=== PATIENT | male | born 1960 | race Caucasian/White ===

== ENCOUNTER 2020-10-04 15:39 | Outpatient (REF) | payer BC, SELFPAY ==
[2020-10-07 17:27] LABS: Lyme Abs Screen <0.90 index
[2020-10-08 12:43] LABS: A. Phagocytophilum Ab IgG <1:64 (<1:64); A. Phagocytophilum Ab IgM <1:20 (<1:20); E. Chaffeensis Ab IgG <1:64 (<1:64); E. Chaffeensis Ab IgM <1:20 (<1:20)
[2020-10-09 10:52] LABS: Babesia IgG <1:64 titer (<1:64); Babesia IgM <1:20 titer (<1:20)
== END 2020-10-04 15:40 | disposition home or self-care (01) ==
LOC: HO.MANLDS 15:39
PROVIDERS: PCP Internal Medicine; Visit Provider Physician Assistant
DX: T14.8XXA Other injury of unspecified body region, initial encounter (principal); W57.XXXA Bitten or stung by nonvenomous insect and other nonvenomous arthropods, initial encounter; Y93.9 Activity, unspecified; Y92.9 Unspecified place or not applicable; Y99.9 Unspecified external cause status
CPT/HCPCS: 36415; 86617; 86618; 86666; 86753

== ENCOUNTER 2021-06-04 10:07 | Outpatient (REF) | payer BC, SELFPAY ==
[2021-06-04 11:24] LABS: Estimated Average Glucose 174 mg/dL; Hemoglobin A1c % 7.7 %
[2021-06-04 11:34] LABS: Alanine Aminotransferase 35 U/L (0-40); Albumin Level 4.1 g/dL (3.5-5.0); Alkaline Phosphatase 66 U/L (39-117); Anion Gap 12 (12-20); Aspartate Amino Transferase 21 U/L (5-37); Bilirubin Total 0.5 mg/dL (0.0-1.0); Blood Urea Nitrogen 13 mg/dL (9-16); Calcium 9.9 mg/dL (8.4-10.2); Carbon Dioxide 29 mmol/L (22-29); Chloride 103 mmol/L (96-108); Estimated Glomerular Filt Rate > 60; Glucose Fasting 238 mg/dL (60-99); Potassium 4.2 mmol/L (3.3-5.1); Sodium 140 mmol/L (135-145); Total Protein 6.8 g/dL (6.5-8.0)
[2021-06-04 11:56] LABS: Free T4 (Free Thyroxine) 0.92 ng/dL (0.71-1.85); Thyroid Stimulating Hormone 1.92 uIU/mL (0.32-4.0)
== END 2021-06-04 10:08 | disposition home or self-care (01) ==
LOC: HO.MANLDS 10:07
PROVIDERS: PCP Internal Medicine; Visit Provider Internal Medicine
DX: R73.01 Impaired fasting glucose (principal); E03.9 Hypothyroidism, unspecified
CPT/HCPCS: 36415; 80053; 83036; 84439; 84443

== ENCOUNTER 2021-10-07 15:16 | Outpatient (REF) | payer BC, SELFPAY ==
[2021-10-07 18:10] LABS: Estimated Average Glucose 148 mg/dL; Hemoglobin A1c % 6.8 %
[2021-10-07 18:21] LABS: Alanine Aminotransferase 22 U/L (0-40); Albumin Level 4.1 g/dL (3.5-5.0); Alkaline Phosphatase 68 U/L (39-117); Anion Gap 12 (12-20); Aspartate Amino Transferase 16 U/L (5-37); Bilirubin Total 0.5 mg/dL (0.0-1.0); Blood Urea Nitrogen 18 mg/dL (9-16); Calcium 9.7 mg/dL (8.4-10.2); Carbon Dioxide 27 mmol/L (22-29); Chloride 104 mmol/L (96-108); Cholesterol 268 mg/dL; Estimated Glomerular Filt Rate > 60; Glucose Random 136 mg/dL (60-115); HDL Cholesterol 47 mg/dL; LDL Cholesterol Calculated 176 mg/dl; Potassium 4.1 mmol/L (3.3-5.1); Sodium 139 mmol/L (135-145); Total Protein 6.7 g/dL (6.5-8.0); Triglycerides 229 mg/dL
[2021-10-07 18:43] LABS: Free T4 (Free Thyroxine) 0.89 ng/dL (0.71-1.85); Thyroid Stimulating Hormone 1.26 uIU/mL (0.32-4.0)
== END 2021-10-07 15:17 | disposition home or self-care (01) ==
LOC: HO.MANLDS 15:16
PROVIDERS: Visit Provider Internal Medicine
DX: E11.9 Type 2 diabetes mellitus without complications (principal); E03.9 Hypothyroidism, unspecified
CPT/HCPCS: 36415; 80053; 80061; 83036; 84439; 84443

== ENCOUNTER 2022-07-20 10:42 | Outpatient (REF) | payer BC, SELFPAY ==
[2022-07-20 14:35] LABS: Estimated Average Glucose 160 mg/dL; Hemoglobin A1c % 7.2 %
[2022-07-20 14:49] LABS: Alanine Aminotransferase 23 U/L (0-40); Albumin Level 4.1 g/dL (3.5-5.0); Alkaline Phosphatase 65 U/L (39-117); Anion Gap 16 (12-20); Aspartate Amino Transferase 16 U/L (5-37); Bilirubin Total 0.7 mg/dL (0.0-1.0); Blood Urea Nitrogen 16 mg/dL (9-16); Calcium 9.8 mg/dL (8.4-10.2); Carbon Dioxide 24 mmol/L (22-29); Chloride 104 mmol/L (96-108); Estimated Glomerular Filt Rate > 60; Glucose Random 117 mg/dL (60-115); Potassium 4.2 mmol/L (3.3-5.1); Sodium 140 mmol/L (135-145); Total Protein 6.6 g/dL (6.5-8.0)
[2022-07-20 15:09] LABS: Thyroid Stimulating Hormone 1.64 uIU/mL (0.32-4.0)
[2022-07-22 05:24] LABS: ~HepC Num1 0.19 S/CO (0.00-0.79); ~Hepatitis C Antibody Nonreactive (Nonreactive)
== END 2022-07-20 10:43 | disposition home or self-care (01) ==
LOC: HO.MANLDS 10:42
PROVIDERS: Visit Provider Internal Medicine
DX: Z11.59 Encounter for screening for other viral diseases (principal); E11.9 Type 2 diabetes mellitus without complications; E03.9 Hypothyroidism, unspecified
CPT/HCPCS: 36415; 80053; 83036; 84443; 86803

== ENCOUNTER 2022-07-29 10:32 | Outpatient (REF) | payer BC, SELFPAY ==
[2022-07-29 13:54] LABS: Prostate Specific Antigen 0.55 ng/mL (<0.05-4.0)
== END 2022-07-29 10:33 | disposition home or self-care (01) ==
LOC: HO.MANLDS 10:32
PROVIDERS: Visit Provider Physician Assistant
DX: Z12.5 Encounter for screening for malignant neoplasm of prostate (principal); N40.0 Benign prostatic hyperplasia without lower urinary tract symptoms
CPT/HCPCS: 36415; 84153

== ENCOUNTER 2022-10-12 14:06 | Outpatient (REF) | payer BC, SELFPAY ==
[2022-10-12 18:14] LABS: Estimated Average Glucose 151 mg/dL; Hemoglobin A1c % 6.9 %
[2022-10-12 18:20] LABS: Alanine Aminotransferase 31 U/L (0-40); Albumin Level 4.2 g/dL (3.5-5.0); Alkaline Phosphatase 69 U/L (39-117); Anion Gap 14 (12-20); Aspartate Amino Transferase 21 U/L (5-37); Bilirubin Total 0.6 mg/dL (0.0-1.0); Blood Urea Nitrogen 15 mg/dL (9-16); Calcium 9.7 mg/dL (8.4-10.2); Carbon Dioxide 26 mmol/L (22-29); Chloride 105 mmol/L (96-108); Estimated Glomerular Filt Rate > 60; Glucose Random 179 mg/dL (60-115); Potassium 4.5 mmol/L (3.3-5.1); Sodium 140 mmol/L (135-145); Total Protein 6.8 g/dL (6.5-8.0)
[2022-10-12 18:37] LABS: Thyroid Stimulating Hormone 1.71 uIU/mL (0.32-4.0)
== END 2022-10-12 14:07 | disposition home or self-care (01) ==
LOC: HO.MANLDS 14:06
PROVIDERS: Visit Provider Internal Medicine
DX: Z11.59 Encounter for screening for other viral diseases (principal); E11.9 Type 2 diabetes mellitus without complications; E03.9 Hypothyroidism, unspecified
CPT/HCPCS: 36415; 80053; 83036; 84443

== ENCOUNTER 2023-06-09 07:23 | Outpatient (REF) | payer BC, SELFPAY ==
[2023-06-09 13:50] LABS: Estimated Average Glucose 169 mg/dL; Hemoglobin A1c % 7.5 % (<6.0)
[2023-06-09 14:08] LABS: Alanine Aminotransferase 36 U/L (0-40); Albumin Level 4.4 g/dL (3.5-5.0); Alkaline Phosphatase 62 U/L (39-117); Anion Gap 13 (12-20); Aspartate Amino Transferase 23 U/L (5-37); Bilirubin Total 0.6 mg/dL (0.0-1.0); Blood Urea Nitrogen 17 mg/dL (9-16); Calcium 9.8 mg/dL (8.4-10.2); Carbon Dioxide 29 mmol/L (22-29); Chloride 103 mmol/L (96-108); Cholesterol 150 mg/dL (<200); Estimated Glomerular Filt Rate > 60; Glucose Random 161 mg/dL (60-115); HDL Cholesterol 54 mg/dL (>40); LDL Cholesterol Calculated 76 mg/dL (<100); Potassium 3.8 mmol/L (3.3-5.1); Sodium 141 mmol/L (135-145); Total Protein 7.4 g/dL (6.5-8.0); Triglycerides 101 mg/dL (<150)
[2023-06-09 14:17] LABS: Free T4 (Free Thyroxine) 0.84 ng/dL (0.71-1.85); Thyroid Stimulating Hormone 3.43 uIU/mL (0.32-4.0)
[2023-06-09 14:27] LABS: Creatinine Urine 158.93 mg/dL
== END 2023-06-09 07:24 | disposition home or self-care (01) ==
LOC: HO.MANLDS 07:23
PROVIDERS: Visit Provider Internal Medicine
DX: E11.9 Type 2 diabetes mellitus without complications (principal); E03.8 Other specified hypothyroidism
CPT/HCPCS: 36415; 80053; 80061; 82043; 82570; 83036; 84439; 84443

== ENCOUNTER 2024-09-27 08:48 | Outpatient (REF) | payer BC, SELFPAY ==
--- OUTSIDE RECORDS SUMMARY | 2024-09-27 09:09 | XMS_ITS | Data Portability ---
Author Organization [facility], [facility], [facility] Address [address] [place] [address] Assessment No assessment recorded. Plan of Treatment Reminders Order Date Submit Date Provider Last Modified By Organization Details Last Modified Time Details Appointments None record ed. Lab None record ed. Referral None record ed. Procedures None record ed. Surgeries None record ed. Imaging None record ed. Medication Orders None record ed. Patient TargetsNo targets recorded. Patient InstructionsNo instructions recorded. Reason for Referral None Reported. Results Created Date Observation Date Name Description Value Unit Range Abnormal Flag Note LastModifiedBy Organization Detail LastModifiedTime Result Notes None recorded. Procedures Surgical History Date Name Laterality Status Provider Name and Address Organization Details Recorded Time Michelle - EGD completed Alfonso Martinez MD [address] [place] [address], [phone] 09/03/2023 11:20:39 Imaging Results None recorded. Procedure Notes None recorded. Medical Equipment None Reported. Allergies No known drug allergies Medications Name Sig Start Date Stop Date Status Note LastModified by Organization Details LastModified Time valsartan active Not Available Not Letty ilable Not Available aspirin active Not Available Not Avail able Not Available levothyroxine active Not Available Not Available Not Available tamsulosin active Not Available Not Av ailable Not Available omeprazole active Not Available Not Av ailable Not Available metoprolol succinate active Not Available Not Available No t Available metformin active Not Available Not Letty ilable Not Available rosuvastatin active Not Available Not Available Not Available Vitals None Recorded Social History None recorded. Functional Status None recorded. Mental Status None recorded. Family History Nothing Reported. Medical History No medical history recorded. Past Encounters Encounter ID Performer Location Encounter Start Date Encounter Closed Date Diagnosis/Indication Diagnosis SNOMED-CT Code Diagnosis ICD10 Code Diagnosis Note [id number] Alfonso Martinez MD [facility], [address] [address] 12/27/2014 10:01:45 12/27/2014 13:41:42 [id number] Alfonso Martinez MD [facility], [address] [address] 06/06/2018 10:10:43 06/06/2018 14:39:45 [id number] Alfonso Martinez MD [facility], [address] [address] 07/15/2020 10:17:14 07/15/2020 13:34:25 [id number] Alfonso Martinez MD [facility] , [address] [address] 09/03/2023 09:01:21 09/03/2023 13:13:07 Health Concerns Section Related Observation LastModified by Organization Detai ls LastModified Time None Recorded Concern Status LastModified by Organization Details LastModified Time None Recorded Advance Directives Directive None Recorded Payers Encounter Date Sequence Insurance Name Policy Number Policy Lisa Covered Member ID Lisa Member ID Guarantor Name 09/03/2023 1 [facility] ([facility]) [id number] Charley Medrano [id number] Chris Hand
[2024-09-27 13:12] LABS: MANUAL DIFF FLAG NO
[2024-09-27 13:29] LABS: Basophils Absolute Auto 0.1 X10*3/uL (0.0-0.2); Basophils Percent Auto 1.3 % (0-2); Eosinophils Absolute Auto 0.3 X10*3/uL (0.0-0.4); Eosinophils Percent Auto 4.2 % (0-4); Hematocrit 43.8 % (42.0-52.0); Hemoglobin 15.1 g/dl (14.0-18.0); Imm Gran Abs Auto 0.02 X10*3/uL (0.00-0.03); Imm Gran Pct Auto 0.3 % (0.0-0.4); Lymphocytes Absolute Auto 2.3 X10*3/uL (1.2-4.9); Lymphocytes Percent Auto 37.2 % (20-40); Mean Corpuscular HGB Conc 34.5 g/dl (31.0-36.0); Mean Corpuscular Hemoglobin 30.9 pg (27.0-33.0); Mean Corpuscular Volume 89.6 fL (80.0-98.0); Mean Platelet Volume 10.7 fL (9.4-12.4); Monocytes Absolute Auto 0.7 X10*3/uL (0.1-1.2); Monocytes Percent Auto 10.5 % (2-11); Neutrophils Absolute Auto 2.9 x10*3/uL (2.0-8.3); Neutrophils Percent Auto 46.5 % (45-73); Platelet Count 243 X10*3/uL (160-400); Red Blood Count 4.89 X10*6/uL (4.60-5.80); Red Cell Distribution Width 12.4 % (11.0-16.0); White Blood Count 6.2 X10*3/uL (4.8-10.8)
[2024-09-27 13:36] LABS: Estimated Average Glucose 189 mg/dL; Hemoglobin A1c % 8.2 % (<6.0)
[2024-09-27 13:40] LABS: Alanine Aminotransferase 37 U/L (0-40); Albumin Level 4.4 g/dL (3.5-5.0); Alkaline Phosphatase 58 U/L (39-117); Anion Gap 10 (12-20); Aspartate Amino Transferase 32 U/L (5-37); Bilirubin Total 0.7 mg/dL (0.0-1.0); Blood Urea Nitrogen 15 mg/dL (9-16); Calcium 9.3 mg/dL (8.4-10.2); Carbon Dioxide 27 mmol/L (22-29); Chloride 105 mmol/L (96-108); Cholesterol 149 mg/dL (<200); Estimated Glomerular Filt Rate > 60; Glucose Random 151 mg/dL (60-115); HDL Cholesterol 46 mg/dL (>40); LDL Cholesterol Calculated 84 mg/dL (<100); Potassium 3.9 mmol/L (3.3-5.1); Sodium 138 mmol/L (135-145); Total Protein 6.8 g/dL (6.5-8.0); Triglycerides 97 mg/dL (<150)
[2024-09-27 14:05] LABS: Free T4 (Free Thyroxine) 0.94 ng/dL (0.71-1.85); Thyroid Stimulating Hormone 3.17 uIU/mL (0.32-4.0)
[2024-09-27 14:52] LABS: Folate 12.4 ng/mL (> or = 4.0); Vitamin B12 664 pg/mL (200-900)
== END 2024-09-27 08:49 | disposition home or self-care (01) ==
LOC: HO.MANLDS 08:48
PROVIDERS: Visit Provider Physician Assistant
DX: E11.9 Type 2 diabetes mellitus without complications (principal); E78.2 Mixed hyperlipidemia; E03.8 Other specified hypothyroidism; G62.9 Polyneuropathy, unspecified
CPT/HCPCS: 36415; 80053; 80061; 82607; 82746; 83036; 84439; 84443; 85025

== ENCOUNTER 2025-01-30 11:29 | Outpatient (REF) | payer BC, SELFPAY ==
--- OUTSIDE RECORDS SUMMARY | 2021-06-27 12:30 | XMS_ITS | Encounter Summary ---
Author Organization [facility] Address [address] [place] [address] [place] [address] Phone Care Team Providers Care Building Materials Sales Attendant Name Role Phone Shahid Watkins MD Unavailable Duarte Erickson DO Primary Care Provider [phone] Encounter Details Date Type Department Care Team (Late st Contact Info) Description 06/27/2021 11:30 AM EST Hospital Encounter [facility] [address] [place] [address] Sia Conn FNP [address] [place] [address] [email or web address] Social History Tobacco Use Types Packs/Day Years [...] 2:26 PM EDT Sharif Francis, BIRDIE * [place] Suicide Severity Rating Scale (Screener/Recent Self-Report) Question Answer Date of Assessment Author 1. Wish to be (Past 1 Month) No 024 2:26 PM EDT Sharif Francis, BIRDIE 2. Non-Specific Active Suici sy Thoughts (Past 1 Month) No 10/23/2023 2:26 PM EDT Sharif Francis RN 6. Suicidal Behavior (Lifetime) No 4 2:26 PM EDT Sharif Francis, RN documented as of this encounter Plan of Treatment Upcoming Encounters Date Type Department Care Team (Late st Contact Info) Description 07/02/2025 10:20 AM EST Office Visit [facility] [address] [place] [address] 3rd Floor, [address] [place] [address] Earl Deshpande MD [address] [place] [address], [address] [place] [phone] [email or web address] documented as of this encounter Procedures Procedure [...] originally createdby Pedro Luis Edouard. Sia Conn TOLL REPAIRER CENTRAL OFFICE IMG XR CHEST Final Resul t documented in this encounter Visit Diagnoses Not on filedocumented in this encounter Care Teams Building Materials Sales Attendant Relationship Specialty Start Date End Date Duarte Erickson DO [address] [place] [address] [email or web address] PCP - General Internal Medicine 12/10/20 Shahid Watkins MD [address] [place] [address] [email or web address] Gastroenterology 06/04/15 documented as of this encounter Additional Source Comments The information contained in this document represents components of the legal health record. It is not the complete legal health record.[facility]
--- OUTSIDE RECORDS SUMMARY | 2025-01-30 12:55 | XMS_ITS | Clinical Summary ---
Author Organization [facility] Address [address] [place] [address] Care Team Providers Care Shirt Bander Name Role Phone Duarte Erickson Primary Care Provider Allergies No known active allergies Medications levothyroxine (SYNTHROID, LEVOTHROID) 50 mcg tablet TAKE 1 TABLET BY MOUTH EVERY DAY 11/13/2020 Active aspirin 325 mg EC tablet Take 1 tablet (325 mg total) by mouth once a day for 14 days. 14 tablet 03/05/2021 Active tamsulosin (FLOMAX) 0.4 mg capsule 05/19/2022 Active omeprazole (PriLOSEC) 20 mg capsule 04/30/2022 Active Active Problems Problem Noted Date Diagnosed Date Right knee pain 03/10/2022 Complex tear of medial menis cus of right knee as current injury 01/14/2021 Family History Medical History Relation Name Comments COPD Father Heart disease Father Relation Name Status Comments Father Mother Social History Tobacco Use Types Packs/Day Years Used Date Smoking Tobacco: Former Cigarettes Smokeless Tobacco: Never Comments:quit 01/2021 Alcohol Use Standard Drinks/Week Comments Yes 0 (1 standard drink = 0.6 oz pur e alcohol) wine daily Sex and Gender Information Value Date Recorded Sex Assigned at Male 12/20/2020 5:37 PM EDT Legal Sex Male 2:05 PM EDT Gender Identity Male 12/20/2020 5:37 PM EDT Sexual Orientation Straight 12/20/2020 5: 37 PM EDT Plan of Treatment Health Maintenance Due Date Last Done Comments Cologuard 1961 Colon Cancer Screening 1961 Colonoscopy 1961 FOBT / Fit Test 1961 HIV Screening 1961 Hepatitis C Screening 1961 Sigmoidoscopy 1961 DTaP,Tdap,and Td Vaccines (1 - Tdap) 1983 CT Lung Cancer Screening (Baseline) 2011 Pneumococcal Vaccine: 50+ Years (1 of 1 - PCV) 2011 Zoster Vaccines (1 of 2) 2011 Alcohol/Substance Use Screening 05/03/2024 Depression Screening and Follow-Up 05/03/2024 Social Drivers of Health Annual Screening 05/03/2024 COVID-19 Vaccine ( season) 2025 04/21/2022, 10/21/2021, 03/20/2021, Additional history exists Influenza Vaccine (#1) 2025 , 02/06/2019, 03/15/2018 RSV Vaccine (60+ years old and patients) (1 - 1-dose 75+ series) 2036 Hepatitis B Vaccines Aged Out No long er eligible based on patient's age to complete this topic Insurance [facility] HMO/POS Care Teams Shirt Bander Relationship Specialty Start Date End Date Duarte Erickson [address] [place] [phone] PCP - General Internal Medicine 12/20/20
--- OUTSIDE RECORDS SUMMARY | 2025-01-30 12:55 | XMS_ITS | Encounter Summary ---
Author Organization [facility] Address [address] [place] [address] [place] [address] Phone Care Team Providers Care Medical Lab Scientist Name Role Phone Shahid Watkins MD Unavailable Bigda, Duarte A DO Unavailable Bigda, Duarte A DO Primary Care Provider [phone] Bigda, Duarte A DO Primary Care Provider [phone] Encounter Details Date Type Department Care Team (Late st Contact Info) Description 06/07/2020 Ancillary Orders Virtual Department [address] [place] [address] Mayra Conrad PA [address] [place] [address] [place] [address] Chest pain, unspecified type Social History Tobacco Use Types Packs/Day Years Used Date Smoking Tobacco: Former Smokeless Tobacco: Never Alcohol Use Standard Drinks/Week Comments Yes 0 (1 standard drink = 0.6 oz pur e alcohol) Sex and Gender Information Value Date Recorded Sex Assigned at Male 08/10/2017 12:27 AM EDT Legal Sex Male 7:43 PM EST Gender Identity Male 08/10/2017 12:27 AM EDT Sexual Orientation Straight 08/10/2017 12 :27 AM EDT documented as of this encounter Plan of Treatment Upcoming Encounters Date Type Department Care Team (Late st Contact Info) Description 07/02/2025 10:20 AM EST Office Visit [facility] [address] [place] [address] 3rd Floor, [address] [place] [address] Earl Deshpande MD 22 [facility], [address] [place] [address] [email or web address] documented as of this encounter Results * NC Stress Result for Nuclear Stress Test (06/07/2020 11:06 AM EST) Max BP Systolic 154 mmHg [facility] Max BP Diastolic 92 mmHg [facility] Max HR 146 BPM [facility] Resting HR 87 BPM [facility] Resting BP Systolic 142 mmHg [facility] Resting BP Diastolic 92 mmHg [facility] Peak METS 1.0 METS [facility] Peak HR 126 BPM [facility] Anatomical Region Laterality Modality Heart Other 06/07/2020 9:56 AM EST 06/07/2020 11:05 AM EST Narrative 06/07/2020 6:59 PM EST Response to Stress The patient exercised for minutes seconds, achieving 1.0 METS at peak exercise. Baseline blood pressure was 142/92 mmHg, and baseline heart rate was 87 bpm. The patient achieved a peak heart rate of 126 bpm, which is% of their maximum predicted heart rate. Report: Pt exercised for 8:27 min on a LEIDY protocol achieving 10.10 METS. Test terminated due to fatigue. Baseline resting HR was 66 bpm. Max heart rate achieved was 146 bpm (90% MPHR). 1. EKG - Baseline EKG showed sinus rhythm with non-specific ST-T wave abnormalities. During exercise, There were exaggerations of his baseline abnormalities, no EKG changes that met strict criteria for ischemia. 2. SYMPTOMS - No chest pain. 3. EXERCISE PHYSIOLOGY - Normal BP response to exercise. Average functional capacity for age. 4. ARRHYTHMIAS - Occasional PVC's.. Conclusion - No EKG changes that met strict criteria for ischemia. Nuclear images pending and will be reported separately. Tsering Armenta,BETSY, BRIDGE PAINTER HELPER-BC with Dr. Aaron. us Mayra HERNANDEZ CV NM CARDIAC Final Resul t documented in this encounter Visit Diagnoses Diagnosis Chest pain, unspecified type Chest pain, unspecified type documented in this encounter Care Teams Medical Lab Scientist Relationship Specialty Start Date End Date Duarte EricksonDO [address] [place] [address] [email or web address] PCP - General Internal Medicine 12/01/19 12/09/20 Duarte Erickson DO [address] [place] [address] [email or web address] PCP - General Internal Medicine 12/10/20 Shahid Watkins MD [address] [place] [address] [email or web address] Gastroenterology 06/04/15 Duarte Erickson DO [address] [place] [address] [email or web address] Insurance Assigned Provider 08/07/23 documented as of this encounter Additional Source Comments The information contained in this document represents components of the legal health record. It is not the complete legal health record.[facility]
--- OUTSIDE RECORDS SUMMARY | 2025-01-30 12:55 | XMS_ITS | Encounter Summary ---
Author Organization [facility] Address [address] [place] [address] Phone Care Team Providers Care Ocean Lifeguard Name Role Phone Shahid Watkins MD Unavailable Duarte Erickosn DO Unavailable Duarte Erickson DO Primary Care Provider [phone] Encounter Details Date Type Department Care Team (Late st Contact Info) Description 12/16/2020 Procedure Pass [facility], [address] [place] [address] Social History Tobacco Use Types Packs/Day Years [...] AM EDT documented as of this encounter Last Filed Vital Signs Vital Sign Reading Time Taken Comments Blood Pressure - - Pulse - - Temperature - - Respiratory Rate - - Oxygen Saturation - - Inhaled Oxygen Concentration - - Weight 77.1 kg (170 lb) 12/17/2020 12:52 PM EDT Height 167.6 cm (5' 6 ) 12/17/2020 12:52 PM EDT Body Mass Index 27.44 12/17/2020 12:52 PM EDT documented in this encounter Plan of Treatment Upcoming Encounters Date Type Department Care Team (Late st Contact Info) Description 07/02/2025 10:20 AM EST Office Visit [facility] [address] [facility] 3rd Floor, [address] [place] [address] Earl Deshpande MD 22 [facility], [address] [place] [address] [email or web address] documented as of this encounter Visit Diagnoses Not on filedocumented in this encounter Care Teams Ocean Lifeguard Relationship Specialty Start Date End Date Duarte Erickson DO [address] [place] [address] [email or web address] PCP - General Internal Medicine 12/10/20 Shahid Watkins MD [address] [place] [address] [email or web address] Gastroenterology 06/04/15 Duarte Erickson DO [address] [place] [address] [email or web address] Insurance Assigned Provider 08/07/23 documented as of this encounter Additional Source Comments The information contained in this document represents components of the legal health record. It is not the complete legal health record.[facility]
--- OUTSIDE RECORDS SUMMARY | 2025-01-30 12:55 | XMS_ITS | Encounter Summary ---
Author Organization [facility] Address [address] [place] [address] [place] [address] Phone Care Team Providers Care Horticulture Worker Name Role Phone Shahid Watkins MD Unavailable Duarte Erickson DO Unavailable Duarte Erickson DO Primary Care Provider [phone] Encounter Details Date Type Department Care Team (Latest Contact Info) Description 07/29/2022 Transcribe Orders Virtual Department [address] [place] [address] Mayra Conrad PA [address] [place] [address] [place] [address] Chronic maxillary sinusitis (Primary Dx) Social History Tobacco Use Types Packs/Day Years [...] Description 07/02/2025 10:20 AM EST Office Visit [facility] [address] [place] [address] 3rd Floor, [address] [place] [address] Earl Deshpande MD [address] [place] [address], [address] [place] [address] [email or web address] documented as of this encounter Results * XR PARANASAL SINUSES 3 OR MORE VIEWS (08/03/2022 9:32 AM EDT) Anatomical Region Laterality Modality Face Computed Radiogr aphy 08/03/2022 3:58 PM EDT Impressions 08/03/2022 4:01 PM EDT No evidence of sinusitis. 8mm oval calcific density overlying the lower calvarium at midline could be related to calcification of the falx or tentorium. Narrative 08/03/2022 4:01 PM EDT XR PARANASAL SINUSES 3 OR MORE VIEWS HISTORY: Sinus pain, sinusitis. COMPARISON: None. FINDINGS: The paranasal sinuses are clear and well-aerated. There is no evidence of an air-fluid level. 8mm oval calcific density overlying the lower calvarium at midline could be related to calcification of the falx or tentorium. Procedure Note Shyam Tapia MD - 08/03/2022 XR PARANASAL SINUSES 3 OR MORE VIEWS HISTORY: Sinus pain, sinusitis. COMPARISON: None. FINDINGS: The paranasal sinuses are clear and well-aerated. There is no evidence ofan air- fluid level. 8mm oval calcific density overlying the lower calvarium at midline couldbe related to calcification of the falx or tentorium. IMPRESSION: No evidence of sinusitis. 8mm oval calcific density overlying the lowercalvarium at midline could be related to calcification of the falx ortentorium. Mayra HERNANDEZ IMG XR HEAD AND SHUNT SERIE S Final Result documented in this encounter Visit Diagnoses Diagnosis Chronic maxillary sinusitis- Primary Chronic maxillary sinusitis documented in this encounter Care Teams Horticulture Worker Relationship Specialty Start Date End Date Duarte Erickson DO [address] [place] [address] [email or web address] PCP - General Internal Medicine 12/10/20 Shahid Watkins MD [address] [place] [address] [email or web address] [email or web address] 06/04/15 Duarte Erickson DO [address] [place] [address] [email or web address] Insurance Assigned Provider 08/07/23 documented as of this encounter Additional Source Comments The information contained in this document represents components of the legal health record. It is not the complete legal health record.[facility]
--- OUTSIDE RECORDS SUMMARY | 2025-01-30 12:55 | XMS_ITS | Encounter Summary ---
Author Organization [facility] Address [address] [place] [address] [place] [address] Phone Care Team Providers Care Pediatric Geneticist Name Role Phone Shahid Watkins MD Unavailable Bigda, Duarte A DO Unavailable Bigda, Duarte A DO Primary Care Provider [phone] Bigda, Duarte A DO Primary Care Provider [phone] Encounter Details Date Type Department Care Team (Late st Contact Info) Description 06/07/2020 Ancillary Orders Virtual Department [address] [place] [address] Mayra Conrad PA [address] [place] [address] [place] [address] Chest pain, unspecified type Social History Tobacco [...] Description 07/02/2025 10:20 AM EST Office Visit [facility] [address] [place] [address] 3rd Floor, [address] [place] [address] Earl Deshpande MD 22 [facility], [address] [address] [email or web address] documented as of this encounter Visit Diagnoses Diagnosis Chest pain, unspecified type documented in this encounter Care Teams Pediatric Geneticist Relationship Specialty Start Date End Date Duarte Erickson DO [address] [place] [address] [email or web address] PCP - General Internal Medicine 12/01/19 12/09/20 Duarte Erickson DO [address] [place] [address] [email or web address] PCP - General Internal Medicine 12/10/20 Shahid Watkins MD [address] [place] [address] [email or web address] Gastroenterology 06/04/15 Duarte Erickson DO [address] [place] [address] [email or web address] Insurance Assigned Provider 08/07/23 documented as of this encounter Additional Source Comments The information contained in this document represents components of the legal health record. It is not the complete legal health record.[facility]
--- OUTSIDE RECORDS SUMMARY | 2025-01-30 12:55 | XMS_ITS | Encounter Summary ---
Author Organization [facility] Address [address] [place] [address] Phone Care Team Providers Care Kinesiologist Name Role Phone Duarte Erickson DO Primary Care Provider [phone] Shahid Watkins MD Unavailable Rodolfo August PA-C Primary Care Provider [phone] Duarte Erickson DO Unavailable Duarte Erickson DO Primary Care Provider [phone] Duarte Erickson DO Primary Care Provider [phone] Encounter Details Date Type Department Care Team (Late st Contact Info) Description 08/13/2017 Transcribe Orders [facility] [address] [place] [address] Duarte Erickson DO 179 [facility] [address] [place] [address] Impaired fasting glucose (Primary Dx); Pure hypercholesterolemi a; Myxedema heart disease Social History Tobacco Use Types Packs/Day Years [...] Description 07/02/2025 10:20 AM EST Office Visit [facility] [address] [facility] 3rd Floor, [address] [place] [address] Earl Deshpande MD 22 [facility], [address] [place] [address] [email or web address] documented as of this encounter Results * PSA (screening) (08/13/2017 7:42 AM EDT) PSA 0.49 0 - 4.00 ng/mL [facility] Blood 08/13/2017 7:42 AM EDT 08/13/2017 8:44 AM EDT us Duarte A Bigda DO LAB BLOOD ORDERABLES Final Resul t Performing Organization Address [facility] Co de Phone Number [address] [address] * TSH (08/13/2017 7:42 AM EDT) TSH 2.70 0.27 - 4.20 uIU/mL [facility] Blood 08/13/2017 7:42 AM EDT 08/13/2017 8:26 AM EDT us Duarte A Big DO LAB BLOOD ORDERABLES Final Resul t Performing Organization Address [facility] Co de Phone Number [address] [address] * (ABNORMAL) Lipid panel (08/13/2017 7:42 AM EDT) HDL 50 mg/dL [facility] Comment: Interpretation: Risk Level Males Decreased >45 mg/dL Average 40-45 mg/dL Increased <40 mg/dL CHOLESTEROL 240 0 - 240 mg/dL [facility] TRIGLYCERIDES 94 30 - 160 mg/dL [facility] LDL 171(H) 50 - 129 mg/dL [facility] Comment: LDL levels in terms of risk for coronary heart disease: <100 mg/dL: Optimal 100-129 mg/dL: Near or above optimal 130-159 mg/dL: Borderline high 160-189 mg/dL: High >190 mg/dL: Very High CARDIAC RISK RATIO 4.8 3.4 - 5.0 [facility] Blood 08/13/2017 7:42 AM EDT 08/13/2017 8:26 AM EDT us Duarte A Georgina DO LAB BLOOD ORDERABLES Final Resul t [facility] [address] [place] [address] * Comprehensive metabolic panel (08/13/2017 7:42 AM EDT) SODIUM 142 133 - 146 mmol/L [facility] POTASSIUM 4.5 3.3 - 5.1 mmol/L [facility] CHLORIDE 100 96 - 108 mmol/L [facility] CO2 28 21 - 35 mmol/L [facility] BUN 14 6 - 19 mg/dL [facility] CREATININE 1.00 0.5 - 1.5 mg/dL [facility] GLUCOSE 94 70 - 99 mg/dL [facility] ALBUMIN 4.4 3.9 - 4.8 g/dL [facility] TOTAL PROTEIN 7.2 6.5 - 8.0 g/dL [facility] CALCIUM 9.8 8.4 - 10.3 mg/dL [facility] ALKALINE PHOSPHATASE 63 39 - 117 U/L [facility] TOTAL BILIRUBIN 0.5 0.0 - 1.2 mg/dL [facility] AST 22 0 - 37 U/L [facility] ALT 27 0 - 40 U/L [facility] GLOBULIN 2.8 1 - 4.8 g/dL [facility] EGFR 84 >59 mL/min/1.7 3m2 [facility] Comment:If patient is black, multiply result by 1.159. The eGFR calculation has changed from the MDRD equation to the CKD-EPI equation as of July 06, 2017. ANION GAP 19 10 - 20 mmol/L [facility] Blood 08/13/2017 7:42 AM EDT 08/13/2017 8:26 AM EDT us Duarte Erickson DO LAB BLOOD ORDERABLES Final Resul t [facility] [address] [place] [address] documented in this encounter Visit Diagnoses Diagnosis Impaired fasting glucose- Primary Pure hypercholesterolemia Myxedema heart disease Unspecified hypothyroidism documented in this encounter Care Teams Kinesiologist Relationship Specialty Start Date End Date Duarte Erickson DO [email or web address] PCP - General Internal Medicine 01/18/14 06/05/18 Scarlet Reynolds PA-C [address] [address] [address] PCP - General Unknown Provider Specialty 06/06/18 11/30/19 Duarte Erickson DO PCP - General Internal Medicine 12/01/19 12/09/20 Duarte Erickson DO PCP - General Internal Medicine 12/10/20 Shahid Watkins MD [address] [place] [address] [email or web address] Gastroenterology 06/04/15 Duarte Erickson DO [address] [place] [address] [email or web address] Insurance Assigned Provider 08/07/23 documented as of this encounter Additional Source Comments The information contained in this document represents components of the legal health record. It is not the complete legal health record.[facility]
--- OUTSIDE RECORDS SUMMARY | 2025-01-30 12:55 | XMS_ITS | Encounter Summary ---
Author Organization [facility] Address [address] [place] [address] Phone Care Team Providers Care Helium Arc Welder Name Role Phone Shahid Watkins MD Unavailable Duarte Erickson DO Unavailable Duarte Erickson DO Primary Care Provider [phone] Encounter Details Date Type Department Care Team (Late st Contact Info) Description 08/21/2022 Procedure Pass [facility], [address] [place] [address] Social History Tobacco Use Types Packs/Day Years [...] Description 07/02/2025 10:20 AM EST Office Visit [facility] [address] [place] [address] 3rd Floor, [address] [place] [address] Earl Deshpande MD 22 [facility], [address] [place] [phone] [email or web address] documented as of this encounter Visit Diagnoses Not on filedocumented in this encounter Care Teams Helium Arc Welder Relationship Specialty Start Date End Date Duarte Erickson DO [address] [place] [address] [email or web address] PCP - General Internal Medicine 12/10/20 Shahid Watkins MD [address] [place] [address] [email or web address] Gastroenterology 06/04/15 Duarte Erickson DO [address] [place] [address] [email or web address] Insurance Assigned Provider 08/07/23 documented as of this encounter Additional Source Comments The information contained in this document represents components of the legal health record. It is not the complete legal health record.[facility]
--- OUTSIDE RECORDS SUMMARY | 2025-01-30 12:55 | XMS_ITS | Encounter Summary ---
Author Organization [facility] Address [address] [facility] [address] [place] [address] Phone Care Team Providers Care Surgical Dental Assistant Name Role Phone Shahid Watkins MD Unavailable Bigda, Duarte A DO Unavailable Bigda, Duarte A DO Primary Care Provider [phone] Bigda, Duarte A DO Primary Care Provider [phone] Encounter Details Date Type Department Care Team (Late st Contact Info) Description 12/01/2019 Procedure Pass [facility], [address] [address] Social History Tobacco Use Types Packs/Day Years [...] Description 07/02/2025 10:20 AM EST Office Visit [facility] [address] [place] [address] 3rd Floor, [address] [place], [place] [phone] Earl Deshpande MD 22 [facility], [address] [place], [place] [phone] [email or web address] documented as of this encounter Visit Diagnoses Not on filedocumented in this encounter Care Teams Surgical Dental Assistant Relationship Specialty Start Date End Date Duarte Erickson DO [address] [place] [address] [email or web address] PCP - General Internal Medicine 12/01/19 12/09/20 Duarte Erickson DO [address] [place] [address] [email or web address] PCP - General Internal Medicine 12/10/20 Shaihd Watkins MD [address] [place] [address] [email or web address] Gastroenterology 06/04/15 Duarte Erickson DO [address] [place] [address] [email or web address] Insurance Assigned Provider 08/07/23 documented as of this encounter Additional Source Comments The information contained in this document represents components of the legal health record. It is not the complete legal health record.[facility]
--- OUTSIDE RECORDS SUMMARY | 2025-01-30 12:55 | XMS_ITS | Encounter Summary ---
Author Organization [facility] Address [address] [facility] [address] [place] [address] Phone Care Team Providers Care Rn Mds Name Role Phone Shahid Watkins MD Unavailable Bigda, Duarte A DO Unavailable Bigda, Duarte A DO Primary Care Provider [phone] Bigda, Duarte A DO Primary Care Provider [phone] Encounter Details Date Type Department Care Team (Late st Contact Info) Description 09/06/2020 Procedure Pass [facility], [address] [id number] Social History Tobacco Use Types Packs/Day Years [...] Description 07/02/2025 10:20 AM EST Office Visit [facility] [address] [place] [address] 3rd Floor, [address] [place], [place] [phone] Earl Deshpande MD 22 [facility], [address] [place], [place] [phone] [email or web address] documented as of this encounter Visit Diagnoses Not on filedocumented in this encounter Care Teams Rn Mds Relationship Specialty Start Date End Date Duarte Erickson DO [address] [place] [address] [email or web address] PCP - General Internal Medicine 12/01/19 12/09/20 Duarte Erickson DO [address] [place] [address] [email or web address] PCP - General Internal Medicine 12/10/20 Shahid Watkins MD [address] [place] [address] [email or web address] Gastroenterology 06/04/15 Duarte Erickson DO [address] [place] [address] [email or web address] Insurance Assigned Provider 08/07/23 documented as of this encounter Additional Source Comments The information contained in this document represents components of the legal health record. It is not the complete legal health record.[facility]
--- OUTSIDE RECORDS SUMMARY | 2025-01-30 12:55 | XMS_ITS | Encounter Summary ---
Author Organization [facility] Address [address] [place] [address] Phone Care Team Providers Care Corsets Salesperson Name Role Phone Shahid Watkins MD Unavailable Bigda, Duarte A DO Unavailable Bigda, Duarte A DO Primary Care Provider [phone] Bigda, Duarte A DO Primary Care Provider [phone] Encounter Details Date Type Department Care Team (Latest Contact Info) Description 07/25/2020 Transcribe Orders Virtual Department 30 [place] [address] Alfonso Martinez MD [address] [place] [address] [email or web address] Baer's esophagus without dysplasia (Primary Dx) Social History Tobacco Use Types [...] Description 07/02/2025 10:20 AM EST Office Visit [facility] [address] [facility] 3rd Floor, [address] [place] [address] Earl Deshpande MD 22 [facility], [address] [place] [address] [email or web address] documented as of this encounter Results * FL UGI SERIES DOUBLE CONTRAST (08/13/2020 12:30 PM EDT) Anatomical Region Laterality Modality Abdomen Computed Radiogr aphy 08/13/2020 1:21 PM EDT Impressions 08/13/2020 1:27 PM EDT Postsurgical changes at gastroesophageal junction with mild spontaneous gastroesophageal reflux but no gross esophageal or gastric duodenal mucosal pathology detected. FLUOROSCOPY TIME: 3 min. 40 sec; 46 IMAGES/FRAMES POS - [id number] Narrative 08/13/2020 1:27 PM EDT COMPARISON: None FINDINGS: A limited view of the abdomen reveals an unremarkable bowel gas pattern. There is left convex scoliotic curvature. A standard double contrast study was performed and recorded on digital rapid sequence, spot, and overhead views. Following ingestion of the contrast mixture dilatation was assessed fluoroscopically and found to be grossly normal with post-surgical changes of prior fundoplication again seen at the gastroesophageal junction. There may be a tiny diverticulum at this level but no evidence of recurrent hiatal hernia. Minimal spontaneous reflux into the distal esophagus was noted without esophageal mucosal ulcerations or fixed strictures apparent. The stomach and duodenal cap filled moderately well and were without evidence of intrinsic disease or involvement of or displacement by extrinsic lesions. Remainder of the visualized proximal small bowel is unremarkable. Procedure Note Alfonso Vallejo MD - 08/13/2020 COMPARISON: None FINDINGS: A limited view of the abdomen reveals an unremarkable bowel gas pattern.There is left convex scoliotic curvature. A standard double contrast studywas performed and recorded on digital rapid sequence, spot, and overheadviews. Following ingestion of the contrast mixture dilatation was assessedfluoroscopically and found to be grossly normal with post-surgical changesof prior fundoplication again seen at the gastroesophageal junction. Theremay be a tiny diverticulum at this level but no evidence of recurrenthiatal hernia. Minimal spontaneous reflux into the distal esophagus wasnoted without esophageal mucosal ulcerations or fixed stricturesapparent. The stomach and duodenal cap filled moderately well and were withoutevidence of intrinsic disease or involvement of or displacement byextrinsic lesions. Remainder of the visualized proximal small bowel isunremarkable. IMPRESSION: Postsurgical changes at gastroesophageal junction with mild spontaneousgastroesophageal reflux but no gross esophageal or gastric duodenalmucosal pathology detected. FLUOROSCOPY TIME: 3 min. 40 sec; 46 IMAGES/FRAMES POS - [id number] Alfonso Martinez MD IM FL MISC Final Resu lt documented in this encounter Visit Diagnoses Diagnosis Baer's esophagus without dysplasia- Primary Baer's esophagus without dysplasia documented in this encounter Care Teams Corsets Salesperson Relationship Specialty Start Date End Date Duarte Erickson DO [address] [place] [address] PCP - General Internal Medicine 12/01/19 12/09/20 Duarte Erickson DO [address] [place] [address] PCP - General Internal Medicine 12/10/20 Shahid Watkins MD [address] [place] [address] [email or web address] Gastroenterology 06/04/15 Duarte Erickson DO [address] [place] [address] Insurance Assigned Provider 08/07/23 documented as of this encounter Additional Source Comments The information contained in this document represents components of the legal health record. It is not the complete legal health record.[facility]
--- OUTSIDE RECORDS SUMMARY | 2025-01-30 12:55 | XMS_ITS | Encounter Summary ---
Author Organization [facility] Address [address] [place] [address] [place] [address] Phone Care Team Providers Care Inspector Coated Fabrics Name Role Phone Shahid Watkins MD Unavailable Duarte Erickson DO Unavailable Duarte Erickson DO Primary Care Provider [phone] Reason for Referral * MRI/CAT Scan - Closed Specialty Diagnoses / Procedures Referred By João choi Referred To Contact Radiology Diagnoses Chronic maxillary sinusitis Procedures CT Face Mayra Conrad PA 6 [facility] [place] [address] Phone: tel: fax: Referral ID Status Reason Start Date Expiration Date Visits Re quested Visits Authorized [id number] Closed 08/26/2022 1 1 Encounter Details Date Type Department Care Team (Latest Contact Info) Description 08/26/2022 Transcribe Orders Virtual Department 30 [place] [address] Mayra Conrad PA 6 [facility] [place] [address] Chronic maxillary sinusitis (Primary Dx) Social History [...] on file 08/27/2022 No 08/27/2022 No 08/27/2022 Sex and Gender Information Value Date Recorded Sex Assigned at Male 08/10/2017 12:27 AM EDT Legal Sex Male 7:43 PM EST Gender Identity Male 08/10/2017 12:27 AM EDT Sexual Orientation Straight 08/10/2017 12 :27 AM EDT documented as of this encounter Plan of Treatment Upcoming Encounters Date Type Department Care Team (Late st Contact Info) Description 07/02/2025 10:20 AM EST Office Visit [facility] [address] [place] [address] 3rd Floor, [address] [place], [place] [id number] Earl Deshpande MD 22 [facility], [address] [address] [email or web address] documented as of this encounter Results * CT FACE WITHOUT CONTRAST (09/09/2022 8:51 AM EDT) Anatomical Region Laterality Modality Face Computed Tomogra phy 09/11/2022 11:0 2 AM EDT Impressions 09/11/2022 11:11 AM EDT 1. Small bilateral right larger than left maxillary sinus mucous retention cysts. No evidence of acute sinusitis. Narrowing of right ostiomeatal channel. Right nasal turbinate mucosal congestion. Narrative 09/11/2022 11:[address] FACE WITHOUT CONTRAST TECHNIQUE: Multidetector-row CT of the face was performed without intravenous contrast using tailored dose modulation techniques. Images were reconstructed in the axial, coronal, and sagittal planes. COMPARISON: 08/03/2022 radiographs FINDINGS: Salivary Glands: Visualized portions of parotid and submandibular glands unremarkable when allowing for a small right parotid nodule suspected to represent a lymph node. Paranasal Sinuses and Mastoids: There are multiple small mucous retention cysts in the base the right maxillary antrum measuring up to 12 mm in height with smaller lesions of several lower density noted in the base the left maxillary antrum. There is minimal mucosal thickening near the right frontoethmoidal junction but the paranasal sinuses are otherwise overall clear. No internal fluid levels apparent. 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 There appears be a small patent secondary communication between the right maxillary antrum and middle nasal meatus. Left ostiomeatal channel is clear. There is mucosal thickening overlying the right middle and inferior nasal turbinates leading to narrowing of the meatus. No nasal polyp apparent. Negligible septal deviation to the left. The mastoids are well-aerated Lymph Nodes: No pathologically enlarged lymph nodes identified. Brain and Orbits: Visualized portions of the brain display no acute intracranial hemorrhage or midline shift. Pineal gland is calcified. No orbital mass. Bones and Soft Tissues: No traumatic or destructive skeletal lesions noted. Degenerative disc changes are present at the C3-4 level. Temporomandibular joints intact. Procedure Note Alfonso Vallejo MD - 09/11/2022 CT FACE WITHOUT CONTRAST TECHNIQUE: Multidetector-row CT of the face was performed withoutintravenous contrast using tailored dose modulation techniques. Imageswere reconstructed in the axial, coronal, and sagittal planes. COMPARISON: 08/03/2022 radiographs FINDINGS: Salivary Glands: Visualized portions of parotid and submandibular glandsunremarkable when allowing for a small right parotid nodule suspected torepresent a lymph node. Paranasal Sinuses and Mastoids: There are multiple small mucous retentioncysts in the base the right maxillary antrum measuring up to 12 mm inheight with smaller lesions of several lower density noted in the base theleft maxillary antrum. There is minimal mucosal thickening near the rightfrontoethmoidal junction but the paranasal sinuses are otherwise overallclear. No internal fluid levels apparent. 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 There appears be a small patent secondary communication betweenthe right maxillary antrum and middle nasal meatus. Left ostiomeatalchannel is clear. There is mucosal thickening overlying the right middleand inferior nasal turbinates leading to narrowing of the meatus. No nasalpolyp apparent. Negligible septal deviation to the left. The mastoids arewell-aerated Lymph Nodes: No pathologically enlarged lymph nodes identified. Brain and Orbits: Visualized portions of the brain display no acuteintracranial hemorrhage or midline shift. Pineal gland is calcified. Noorbital mass. Bones and Soft Tissues: No traumatic or destructive skeletal lesionsnoted. Degenerative disc changes are present at the C3-4 level.Temporomandibular joints intact. IMPRESSION: 1. Small bilateral right larger than left maxillary sinus mucousretention cysts. No evidence of acute sinusitis. Narrowing of rightostiomeatal channel. Right nasal turbinate mucosal congestion. Mayra HERNANDEZ IMDestinee CT HEAD/NECK Final Resu lt documented in this encounter Visit Diagnoses Diagnosis Chronic maxillary sinusitis- Primary Chronic maxillary sinusitis documented in this encounter Care Teams Inspector Coated Fabrics Relationship Specialty Start Date End Date Duarte Erickson DO [address] [place] [address] [email or web address] PCP - General Internal Medicine 12/10/20 Shahid Watkins MD [address] [place] [address] [email or web address] 06/04/15 Duarte Erickson DO [address] [place] [address] [email or web address] Insurance Assigned Provider 08/07/23 documented as of this encounter Additional Source Comments The information contained in this document represents components of the legal health record. It is not the complete legal health record.[facility]
--- OUTSIDE RECORDS SUMMARY | 2025-01-30 12:55 | XMS_ITS | Encounter Summary ---
Author Organization [facility] Address [address] [place] [address] [place] [address] Phone Care Team Providers Care Investment Recovery Technician Name Role Phone Shahid Watkins MD Unavailable Duarte Erickson DO Unavailable Duarte Erickson DO Primary Care Provider [phone] Encounter Details Date Type Department Care Team (Late st Contact Info) Description 04/12/2024 Procedure Pass [facility] [address] [place], [place] [id number] Social History Tobacco Use Types Packs/Day Years [...] Description 07/02/2025 10:20 AM EST Office Visit [facility] [address] [place] [address] 3rd Floor, [address] [place] [address] Earl Deshpande MD [address] [address] [email or web address] documented as of this encounter Visit Diagnoses Not on filedocumented in this encounter Additional Health Concerns Assessment Noted Time PHQ-9 Depression Total Score: 4 10/14/19 23 11:30 AM EDT documented as of this encounter Care Teams Investment Recovery Technician Relationship Specialty Start Date End Date Duarte Erickson DO [address] [place] [address] [email or web address] PCP - General Internal Medicine 12/10/20 Shahid Watkins MD [address] [place] [address] [email or web address] Gastroenterology 06/04/15 Duarte Erickson DO [address] [place] [address] [email or web address] Insurance Assigned Provider 08/07/23 documented as of this encounter Additional Source Comments The information contained in this document represents components of the legal health record. It is not the complete legal health record.[facility]
--- OUTSIDE RECORDS SUMMARY | 2025-01-30 12:55 | XMS_ITS | Encounter Summary ---
Author Organization [facility] Address [address] [place] [address] Phone Care Team Providers Care Getter Operator Name Role Phone Shahid Watkins MD Unavailable Duarte Erickson DO Unavailable Duarte Erickson DO Primary Care Provider [phone] Reason for Referral * MRI/CAT Scan - Closed Specialty Diagnoses / Procedures Referred By Contwayne t Referred To Contact Radiology Diagnoses Complex tear of medial meniscus, current injury, right knee, initial encounter Procedures MRI Knee (Right) Mayra Conrad PA 6 [facility] [place] [address] Phone: tel: fax: Referral ID Status Reason Start Date Expiration Date Visits Re quested Visits Authorized [id number] Closed 08/21/2022 1 1 Encounter Details Date Type Department Care Team (Latest Contact Info) Description 08/21/2022 Transcribe Orders Virtual Department 30 [place] [address] Mayra Conrad PA 6 [facility] [place] [address] Complex tear of medial meniscus, current injury, right knee, initial encounter (Primary Dx) Social History Tobacco Use Types [...] Description 07/02/2025 10:20 AM EST Office Visit [facility] [address] [place] [address] 3rd Floor, [address] [place] [address] Earl Deshpande MD 22 [facility], [address] [place] [address] [email or web address] documented as of this encounter Results * MRI KNEE WITHOUT CONTRAST (RIGHT) (08/28/2022 2:45 PM EDT) Anatomical Region Laterality Modality Knee Right Magnetic Resonan ce 08/31/2022 10:1 2 AM EDT Impressions 08/31/2022 10:30 AM EDT Evaluation markedly degraded by motion despite repeat sequences 1. Medial meniscus is truncated and irregular which may be on the basis of prior postsurgical changes; superimposed acute tear cannot be excluded given motion. 2. Interval development of full-thickness cartilage loss at the medial compartment with subchondral cystic change, cortical irregularity, and bone marrow edema most pronounced at the medial weightbearing femoral condyle. 3. Redemonstration of radial tear lateral meniscus. Minimal subchondral marrow edema at the weightbearing lateral femoral condyle. 4. Interval progression of pulmonary edema at the medial patella again with areas of full-thickness cartilage loss of the median ridge and medial facet. 5. Moderately sized joint effusion Narrative 08/31/2022 10:30 AM EDT MRI KNEE WITHOUT CONTRAST (RIGHT) History: History of bucket handle medial meniscus status post repair with continued medial right knee pain TECHNIQUE: Multi-sequence, multi-planar MRI of the knee without intravenous contrast. COMPARISON: MRI knee 12/20/2020 FINDINGS: Evaluation markedly degraded by motion despite repeat sequences Menisci: The medial meniscus is truncated and irregular which may be on the basis of prior postsurgical changes; superimposed acute tear cannot be excluded given motion. Redemonstration of radial tear of the lateral meniscus. Cruciates: Normal anterior and posterior cruciates. Collaterals: Edema both sides of the MCL in keeping with grade 1 sprain pattern. Normal posterolateral ligamentous structures. Extensor Mechanism: Normal. Tibiofemoral joints: Interval development of full-thickness cartilage loss at the weightbearing medial femoral condyle with cortical irregularity and bone marrow edema throughout the medial plateau. No definite linear signal intensity to suggest impaction fracture though evaluation is limited given motion. Mild bone marrow edema at the anterior weightbearing medial tibial plateau also with areas of full- thickness cartilage loss. There is a punctate focus of subchondral edema at the weightbearing lateral femoral condyle. Patellofemoral joint: There is a full-thickness cartilage loss of the roots medial facet with interval progression subchondral cystic change and bone marrow edema. Proximal tibiofibular joint: Normal. Synovial Spaces: There is a moderately sized joint effusion with associated synovial proliferation. Periarticular Structures: There is no significant popliteal cyst. Bone marrow: Marked bone marrow edema at the medial compartment, as above most prominently involving the weightbearing medial femoral condyle. Intervally increased marrow edema at the medial patella. Procedure Note Chen Sneed MD - 08/31/2022 MRI KNEE WITHOUT CONTRAST (RIGHT) History: History of bucket handle medial meniscus status post repair withcontinued medial right knee pain TECHNIQUE: Multi-sequence, multi-planar MRI of the knee withoutintravenous contrast. COMPARISON: MRI knee 12/20/2020 FINDINGS: Evaluation markedly degraded by motion despite repeat sequences Menisci: The medial meniscus is truncated and irregular which may be onthe basis of prior postsurgical changes; superimposed acute tear cannot beexcluded given motion. Redemonstration of radial tear of the lateralmeniscus. Cruciates: Normal anterior and posterior cruciates. Collaterals: Edema both sides of the MCL in keeping with grade 1 sprainpattern. Normal posterolateral ligamentous structures. Extensor Mechanism: Normal. Tibiofemoral joints: Interval development of full-thickness cartilage lossat the weightbearing medial femoral condyle with cortical irregularity andbone marrow edema throughout the medial plateau. No definite linear signalintensity to suggest impaction fracture though evaluation is limited givenmotion. Mild bone marrow edema at the anterior weightbearing medial tibialplateau also with areas of full- thickness cartilage loss. There is apunctate focus of subchondral edema at the weightbearing lateral femoralcondyle. Patellofemoral joint: There is a full-thickness cartilage loss of theroots medial facet with interval progression subchondral cystic change andbone marrow edema. Proximal tibiofibular joint: Normal. Synovial Spaces: There is a moderately sized joint effusion withassociated synovial proliferation. Periarticular Structures: There is no significant popliteal cyst. Bone marrow: Marked bone marrow edema at the medial compartment, as abovemost prominently involving the weightbearing medial femoral condyle.Intervally increased marrow edema at the medial patella. IMPRESSION: Evaluation markedly degraded by motion despite repeat sequences 1. Medial meniscus is truncated and irregular which may be on the basisof prior postsurgical changes; superimposed acute tear cannot be excludedgiven motion. 2. Interval development of full-thickness cartilage loss at the medialcompartment with subchondral cystic change, cortical irregularity, andbone marrow edema most pronounced at the medial weightbearing femoralcondyle. 3. Redemonstration of radial tear lateral meniscus. Minimal subchondralmarrow edema at the weightbearing lateral femoral condyle. 4. Interval progression of pulmonary edema at the medial patella againwith areas of full-thickness cartilage loss of the median ridge and medialfacet. 5. Moderately sized joint effusion Mayra HERNANDEZ IMG MR EXTREMITY Final Resu lt documented in this encounter Visit Diagnoses Diagnosis Complex tear of medial meniscus, current injury, right knee, initial encounter- Primary Complex tear of medial meniscus, current injury, right knee, initial encounter documented in this encounter Care Teams Getter Operator Relationship Specialty Start Date End Date Duarte Erickson DO [address] [place] [address] [email or web address] PCP - General Internal Medicine 12/10/20 Shahid Watkins MD [address] [place] [address] [email or web address] [email or web address] 06/04/15 Duarte Erickson DO [address] [place] [address] [email or web address] Insurance Assigned Provider 08/07/23 documented as of this encounter Additional Source Comments The information contained in this document represents components of the legal health record. It is not the complete legal health record.[facility]
--- OUTSIDE RECORDS SUMMARY | 2025-01-30 12:55 | XMS_ITS | Encounter Summary ---
Author Organization [facility] Address [address] [place] [address] [place] [address] Phone Care Team Providers Care Nonfarm Animal Caretaker Name Role Phone Shahid Watkins MD Unavailable Duarte Erickson DO Unavailable Duarte Erickson DO Primary Care Provider Encounter Details Date Type Department Care Team (Late st Contact Info) Description 08/26/2022 Procedure Pass [facility], Ct Scan - [address] [id number] Social History Tobacco Use Types Packs/Day Years [...] Description 07/02/2025 10:20 AM EST Office Visit [facility] [address] [place] [address] 3rd Floor, [address] [place], [place] [phone] Earl Deshpande MD 22 [facility], [address] [place] [address] [email or web address] documented as of this encounter Visit Diagnoses Not on filedocumented in this encounter Care Teams Nonfarm Animal Caretaker Relationship Specialty Start Date End Date Duarte Erickson DO [address] [facility] [place] [address] [email or web address] PCP - General Internal Medicine 12/10/20 Shahid Watkins MD [address] [place] [address] [email or web address] Gastroenterology 06/04/15 Duarte Erickson DO [address] [place] [address] [email or web address] Insurance Assigned Provider 08/07/23 documented as of this encounter Additional Source Comments The information contained in this document represents components of the legal health record. It is not the complete legal health record.[facility]
--- OUTSIDE RECORDS SUMMARY | 2025-01-30 12:56 | XMS_ITS | Encounter Summary ---
Author Organization [facility] Address [address] [place] [address] [place] [address] Phone Care Team Providers Care Cardiac Catheterization Technician Name Role Phone Shahid Watkins MD Unavailable Bigda, Duarte A DO Unavailable Bigda, Duarte A DO Primary Care Provider [phone] Bigda, Duarte A DO Primary Care Provider [phone] Encounter Details Date Type Department Care Team (Late st Contact Info) Description 05/08/2020 Procedure Pass [facility] [address] [place] [address] Social History Tobacco Use Types Packs/Day Years [...] Description 07/02/2025 10:20 AM EST Office Visit [facility] [address] [place] [address] 3rd Floor, [address] [place] [address] Earl Deshpande MD 22 [facility], [address] [place] [phone] [email or web address] documented as of this encounter Visit Diagnoses Not on filedocumented in this encounter Care Teams Cardiac Catheterization Technician Relationship Specialty Start Date End Date Duarte Erickson DO [address] [place] [address] PCP - General Internal Medicine 12/01/19 12/09/20 Duarte Erickson DO [address] [place] [address] PCP - General Internal Medicine 12/10/20 Shahid Watkins MD [address] [place] [address] [email or web address] [email or web address] 06/04/15 Duarte Erickson DO [address] [place] [address] Insurance Assigned Provider 08/07/23 documented as of this encounter Additional Source Comments The information contained in this document represents components of the legal health record. It is not the complete legal health record.[facility]
--- OUTSIDE RECORDS SUMMARY | 2025-01-30 12:56 | XMS_ITS | Clinical Summary ---
Author Organization [facility] Address [address] [place] [address] Phone Care Team Providers Care Soaker Hides Name Role Phone Shahid Watkins MD Unavailable Duarte Erickson DO Unavailable Duarte Erickson DO Primary Care Provider [phone] Allergies No known active allergies Medications levothyroxine (SYNTHROID, LEVOTHROID) 50 MCG tablet Take 1 tablet by mouth daily. 3 Active diclofenac sodium (VOLTAREN) 50 MG EC tablet Take 50 mg by mouth 2 (two) times a day. Active diclofenac sodium (VOLTAREN) 1 % GelIndications: Left shoulder pain,Contusion of left shoulder, sequela Apply 2 g topically 4 (four) times a day. 1 Tube 2 1 Active omeprazole (PRILOSEC) 20 MG capsule TAKE 1 CAPSULE BY MOUTH EVERY DAY 30 MINUTES BEFORE BREAKFAST 2 Active tamsulosin (FLOMAX) 0.4 mg Cap Take by mouth daily. 2 Active naproxen (NAPROSYN) 500 MG tablet Take 1 tablet (500 mg total) by mouth 2 (two) times a day for 3 days. Then twice daily as needed for pain, inflammation 20 tablet 2 Active aspirin 81 mg CapIndications: myocardial infarction prevention Take 81 mg by mouth daily. Indications: treatment to prevent a heart attack Active metoprolol succinate (TOPROL-XL) 50 MG 24 hr tablet Take 50 mg by mouth daily. Active ticagrelor (BRILINTA) 90 mg Tab Take 90 mg by mouth 2 (two) times a day. Active valsartan (DIOVAN) 40 MG tablet Take 40 mg by mouth 2 (two) times a day. Active acetaminophen (TYLENOL) 325 mg tablet Take 650 mg by mouth every 6 (six) hours as needed. Active amoxicillin (AMOXIL) 500 MG capsule Dental 4 Active famotidine (PEPCID) 40 MG tablet 4 Active metFORMIN (GLUCOPHAGE) 500 MG tablet Take 500 mg by mouth. 4 Active rosuvastatin (CRESTOR) 40 MG tablet Take 40 mg by mouth. 3 Active traZODone (DESYREL) 50 MG tablet as needed. 4 Active clobetasol (TEMOVATE) 0.05 % external solution Active fluticasone propionate (FLONASE) 50 mcg/actuation nasal spray Active clobetasol (TEMOVATE) 0.05 % cream Active LORazepam (ATIVAN) 1 MG tablet Active metoclopramide HCl (REGLAN) 10 MG tablet TAKE 1 TABLET BY MOUTH IN THE EVENING FOR 6 WEEKS ONCE DAILY FOR 44 DAYS Active pantoprazole (PROTONIX) 40 MG tablet Active prochlorperazin e (COMPAZINE) 10 MG tablet Active Active Problems Problem Noted Date Diagnosed Date Atherosclerosis of [place] co ronary artery of [place] heart without angina pectoris 07/04/2024 Dysphonia 02/21/2016 Chronic laryngitis 02/21/2016 Edema of larynx 02/21/2016 Hypothyroidism 03/15/2014 Overview (06/23/2014): Hypothyroidism Laryngopharyngeal reflux 11/01/2013 Overview (06/23/2014): Laryngopharyngeal reflux Difficulty speaking 12/21/2012 Overview (06/23/2014): Dysphonia GERD (gastroesophageal reflux disease) Hyperlipidemia Encounters Date Type Department Care Team Description 01/30/2025 Transcribe Orders [facility] Department [address] [place] [address] Mayra Conrad PA Other chest pain (Primary Dx) from Last 3 Months Immunizations Immunization Administration Dates Next Due Influenza, Unspecified Formulation 07/22(Deferred: Patient Decision - 00),07/10/2014(Deferred: Patient Decision - 00) Family History Medical History Relation Comments Cervical cancer Mother Malignant tumor of cervix Heart disease Mother Arthritis Unspecified Cancer Unspecified Diabetes Unspecified Heart disease Unspecified Relation Status Comments Mother Unspecified Social History Tobacco Use Types Packs/Day Years Used Date Smoking Tobacco: Former Smokeless Tobacco: Former Tobacco Cessation:Counseling Given: Not Answered Alcohol Use Standard Drinks/Week Comments Yes 5 [...] Orientation Straight 08/10/2017 12 :27 AM EDT Last Filed Vital Signs Vital Sign Reading Time Taken Comments Blood Pressure 108/60 07/04/2024 10:28 AM EST Pulse 59 07/04/2024 10:28 AM EST Temperature 37 C (98.6 F) 10/23/2023 3:33 PM EDT Respiratory Rate 16 10/23/2023 3:33 PM EDT Oxygen Saturation 97% 07/04/2024 10:28 AM EST Inhaled Oxygen Concentration - - Weight 79.4 kg (175 lb) 07/04/2024 10:28 AM EST Height 167.6 cm (5' 5.98 ) 07/04/2024 10:[address] Body Mass Index 28.26 07/04/2024 10:28 AM EST Plan of Treatment Upcoming Encounters Date Type Department Care Team (Late st Contact Info) Description 07/02/2025 10:20 AM EST Office Visit [facility] [address] [place] [address] [address] Floor, [address] [place] [address] Earl Deshpande MD 22 [facility], [address] [place] [address] Health Maintenance Due Date Last Done Comments Adult Td,Tdap Booster 1961 SMOKING Hx and SMOKELESS TOBACCO SCREENING 1974 HIV ONE-TIME SCREENING (18-6 5 YEARS) 1979 COLOGUARD 2006 COLONOSCOPY 2006 COLORECTAL CANCER SCREENING 2006 FIT TEST 2006 FOBT 2006 SIGMOIDOSCOPY 2006 VIRTUAL COLONOSCOPY 2006 PNEUMOCOCCAL VACCINES (50+ years) (1 of 1 - PCV) 2011 ZOSTER VACCINES (1 of 2) 2011 POTASSIUM LEVEL 03/25/2022 03/25/2021, 08/13/2017 TSH LEVEL 03/25/2022 03/25/2021, 08/13/2017 DEPRESSION SCREENING 10/14/2023 10/13/2022 CREATININE LEVEL 09/10/2024 09/11/2023, 03/25/2021, 08/13/2017 INFLUENZA VACCINE (#1) 2024 , 02/06/2019, 03/15/2018 COVID-19 VACCINE (3 - 2024-2 6 season) 2025 03/20/2021, 08/05/2020 BLOOD PRESSURE 01/04/2025 07/04/2024 SCREENING FOR DIABETES 04/14/2026 3, 08/13/2017 RSV VACCINE (1 - 1-dose 75+ series) 2036 HEPATITIS C SCREENING Completed 07/20/2022 HEPATITIS A VACCINES Aged Out No long er eligible based on patient's age to complete this topic HIB VACCINES Aged Out No longer eligi ble based on patient's age to complete this topic MENINGOCOCCAL VACCINES (ACWY) Aged Out No longer eligible based on patient's age to complete this topic MENINGOCOCCAL VACCINES (B) Aged Out N o longer eligible based on patient's age to complete this topic Medical Devices Not on file Procedures Procedure Name Priority Date/Time Associated Diagnosis Comments TSH Routine 03/25/2021 11:24 AM EST Gastroesophageal reflux disease, unspecified whether esophagitis present Nausea COMPREHENSIVE METABOLIC PANEL Routine 03/25/2021 11:24 AM EST Gastroesophageal reflux disease, unspecified whether esophagitis present Nausea from Last 3 Months or Most Recently Relevant to Health Maintenance Results * (ABNORMAL) Comprehensive metabolic panel (03/25/2021 11:24 AM EST) SODIUM 135 133 - 146 mmol/L [facility] POTASSIUM 4.1 3.3 - 5.1 mmol/L [facility] CHLORIDE 99 96 - 108 mmol/L [facility] CO2 25 21 - 35 mmol/L [facility] BUN 13 6 - 19 mg/dL [facility] CREATININE 0.80 0.5 - 1.5 mg/dL [facility] GLUCOSE 200(H) 70 - 99 mg/dL [facility] ALBUMIN 4.4 3.9 - 4.8 g/dL [facility] TOTAL PROTEIN 7.2 6.5 - 8.0 g/dL [facility] CALCIUM 9.9 8.4 - 10.3 mg/dL [facility] ALKALINE PHOSPHATASE 71 39 - 117 U/L [facility] TOTAL BILIRUBIN 0.5 0.0 - 1.2 mg/dL [facility] AST 33 0 - 37 U/L [facility] ALT 38 0 - 40 U/L [facility] GLOBULIN 2.8 1 - 4.8 g/dL [facility] EGFR 98 >59 mL/min/1.7 3m2 [facility] Comment:Estimated glomerular filtration rate calculated using the CKD-EPI equation. ANION GAP 15 10 - 20 mmol/L [facility] Blood 03/25/2021 11:2 4 AM EST 03/25/2021 11:26 AM EST us Lyla HERNANDEZ-Nila LAB BLOOD ORDERABLES Final Resu lt Performing Organization Address City/[facility]/ZIP Co de Phone Number [address] [address] * TSH (03/25/2021 11:24 AM EST) TSH 2.29 0.27 - 4.20 uIU/mL [facility] Blood 03/25/2021 11:2 4 AM EST 03/25/2021 11:26 AM EST Lyla HERNANDEZ-Nila LAB BLOOD ORDERABLES Final Resu lt Performing Organization Address City/[facility] Co de Phone Number [address] [address] from Last 3 Months or Most Recently Relevant to Health Maintenance Insurance [facility] Advance Directives For more information, please contact: [phone] (9AM - 5PM Dana/[facility], Wednesday-Wednesday) Documents on File Type Date Recorded Patient Crab Catcher Expl anation Advance Directive - Non Epic LMR 08/08/2015 12:00 AM Care Teams Soaker Hides Relationship Specialty Start Date End Date Duarte Erickson DO [address] [place] [address] [email or web address] PCP - General Internal Medicine 12/10/20 Shahid Watkins MD [address] [place] [address] [email or web address] 06/04/15 Duarte Erickson DO [address] [place] [address] [email or web address] Insurance Assigned Provider 08/07/23 Additional Source Comments The information contained in this document represents components of the legal health record. It is not the complete legal health record.[facility]
--- OUTSIDE RECORDS SUMMARY | 2025-01-30 12:56 | XMS_ITS | Encounter Summary ---
Author Organization [facility] Address [address] [place] [address] [address] [place] [address] Phone Care Team Providers Care Hand Zipper Trimmer Name Role Phone Shahid Watkins MD Unavailable Bigda, Duarte A DO Unavailable Bigda, Duarte A DO Primary Care Provider [phone] Bigda, Duarte A DO Primary Care Provider [phone] Encounter Details Date Type Department Care Team (Late st Contact Info) Description 05/17/2020 Ancillary Orders [facility],Outside Imaging [address] [place], [place] [id number] System, Provider Not In, [place] [address] Social History Tobacco Use Types Packs/Day Years [...] Description 07/02/2025 10:20 AM EST Office Visit [facility] [address] [place] [address] [address]rd Floor, [address] [place] [address] Earl Deshpande MD 22 [facility], [facility] [address] [place] [address] [email or web address] documented as of this encounter Results * XR Upper Extremity Outside (No Interpretation) (05/06/2020 12:00 AM EST) Narrative SYSTEMGENERATED, DOCUMENTATION - 05/17/2020 9:48 AM EST This study is for PACS storage only and not for interpretation. us Provider Not In System PhD IMG OUTSIDE IMAGING W /OUT INTERPRETATION Final Result documented in this encounter Visit Diagnoses Not on filedocumented in this encounter Care Teams Hand Zipper Trimmer Relationship Specialty Start Date End Date Duarte Erickson DO [address] [place] [address] PCP - General Internal Medicine 12/01/19 12/09/20 Duarte Erickson DO [address] [place] [address] PCP - General Internal Medicine 12/10/20 Shahid Watkins MD [address] [place] [phone] [email or web address] Gastroenterology 06/04/15 Duarte Erickson DO [address] [place] [address] Insurance Assigned Provider 08/07/23 documented as of this encounter Additional Source Comments The information contained in this document represents components of the legal health record. It is not the complete legal health record.[facility]
--- OUTSIDE RECORDS SUMMARY | 2025-01-30 12:56 | XMS_ITS | Encounter Summary ---
Author Organization [facility] Address [address] [place] [address] [place] [address] Phone Care Team Providers Care Drapery Cutter Machine Name Role Phone Shahid Watkins MD Unavailable Duarte Erickson DO Unavailable Duarte Erickson DO Primary Care Provider [phone] Reason for Referral * Consultation (Elective) - Closed Specialty Diagnoses / Procedures Referred By João choi Referred To Contact Cardiac Rehabilitation Diagnoses Myocardial infarction, unspecified NV type, unspecified artery Duarte Erickson DO [address] [facility] [place], [place] Phone: tel: fax: mailto:[email or web address] [facility] [address] [place] [address] Phone: tel: Referral ID Status Reason Start Date Expiration Date Visits Re quested Visits Authorized [id number] Closed 09/25/2022 09/26/2023 1 1 Encounter Details Date Type Department Care Team (Late st Contact Info) Description 09/25/2022 Transcribe Orders [facility] Department [address] [place] [address] Duarte Erickson DO [address] [facility] [place], [place] [email or web address] Myocardial infarction, unspecified NV type, unspecified artery (Primary Dx) Social History Tobacco Use Types [...] with a working camera? Not on file Sex and Gender Information Value Date Recorded Sex Assigned at Male 08/10/2017 12:27 AM EDT Legal Sex Male 7:43 PM EST Gender Identity Male 08/10/2017 12:27 AM EDT Sexual Orientation Straight 08/10/2017 12 :27 AM EDT documented as of this encounter Plan of Treatment Upcoming Encounters Date Type Department Care Team (Late st Contact Info) Description 07/02/2025 10:20 AM EST Office Visit [facility] [address] [place] [address] [facility] [facility], [address] [place] [address] Earl Deshpande MD [address] [place] [phone] [email or web address] Scheduled Referrals Name Type Priority Associated Diagnoses Orde r Schedule Ambulatory referral to [facility] Cardiac Rehab Outpatient Referral Routine Myocardial infarction, unspecified NV type, unspecified artery Ordered: 09/25/2022 documented as of this encounter Visit Diagnoses Diagnosis Myocardial infarction, unspecified NV type, unspecified artery- Primary documented in this encounter Care Teams Drapery Cutter Machine Relationship Specialty Start Date End Date Duarte Erickson DO [address] [place] [address] [email or web address] PCP - General Internal Medicine 12/10/20 Shahid Watkins MD [address] [place] [phone] [email or web address] 06/04/15 Duarte Erickson DO [address] [place] [address] [email or web address] Insurance Assigned Provider 08/07/23 documented as of this encounter Additional Source Comments The information contained in this document represents components of the legal health record. It is not the complete legal health record.[facility]
--- OUTSIDE RECORDS SUMMARY | 2025-01-30 12:56 | XMS_ITS | Encounter Summary ---
Author Organization [facility] Address [address] [place] [address] [place] [address] Phone Care Team Providers Care Corn Cooker Name Role Phone Shahid Watkins MD Unavailable Duarte Erickson DO Unavailable Duarte Erickson DO Primary Care Provider [phone] Encounter Details Date Type Department Care Team (Latest Contact Info) Description 01/30/2025 Transcribe Orders Virtual Department [address] [place] [address] Mayra Conrad PA [address] [place] [address] [place] [address] Other chest pain (Primary Dx) Social History Tobacco Use Types [...] Upcoming Encounters Date Type Department Care Team ([facility] st Contact Info) Description 07/02/2025 10:20 AM EST Office Visit [facility] [address] [place] [address], [address] [place] [address] [address] Earl Deshpande MD [address] [place] [address] [email or web address] Scheduled Orders Name Type Priority Associated Diagnoses Orde r Schedule XR Chest Imaging Routine Other chest pain Expected: 01/30/2025, Expires: 01/30/2026 documented as of this encounter Visit Diagnoses Diagnosis Other chest pain- Primary documented in this encounter Additional Health Concerns Assessment Noted Time PHQ-9 Depression Total Score: 4 10/14/19 23 11:30 AM EDT documented as of this encounter Care Teams Corn Cooker Relationship Specialty Start Date End Date Duarte Erickson DO [address] [place] [address] [email or web address] PCP - General Internal Medicine 12/10/20 Shahid Watkins MD [address] [place] [phone] [email or web address] Gastroenterology 06/04/15 Duarte Erickson DO [address] [place] [address] [email or web address] Insurance Assigned Provider 08/07/23 documented as of this encounter Additional Source Comments The information contained in this document represents components of the legal health record. It is not the complete legal health record.[facility]
--- OUTSIDE RECORDS SUMMARY | 2025-01-30 12:56 | XMS_ITS | Encounter Summary ---
Author Organization [facility] Address [address] [place] [address] Phone Care Team Providers Care Hand Ii Thermal Cutter Name Role Phone Shahid Watkins MD Unavailable Bigda, Duarte A DO Unavailable Bigda, Duarte A DO Primary Care Provider [phone] Bigda, Duarte A DO Primary Care Provider [phone] Reason for Referral * MRI/CAT Scan - Closed Specialty Diagnoses / Procedures Referred By Contwayne t Referred To Contact Radiology Diagnoses Chest pain, unspecified type Procedures NC Myocardial Perfusion Exercise Multiple Mayra Conrad PA Phone: tel: fax: [address] Phone: tel: Referral ID Status Reason Start Date Expiration Date Visits Re quested Visits Authorized [id number] Closed 05/27/2020 05/27/2021 1 1 Encounter Details Date Type Department Care Team (Latest Contact Info) Description 05/27/2020 Transcribe Orders [facility] Department [address] [place] [address] Mayra Conrad PA [address] [place] [address] [place] [address] Chest pain, unspecified type (Primary Dx) Social History Tobacco Use Types [...] Description 07/02/2025 10:20 AM EST Office Visit [facility] [address] [place] [address] [address] Floor, [address] [place] [address] Earl Deshpande MD 22 [facility], [address] [place] [address] [email or web address] documented as of this encounter Results * NC Myocardial Perfusion Exercise Multiple (06/07/2020 11:12 AM EST) Anatomical Region Laterality Modality Heart, Vascular Nuclear Medicine 06/07/2020 12:1 6 PM EST Impressions 06/07/2020 12:20 PM EST No ischemia or infarction. Normal ejection fraction of 64%. Narrative 06/07/2020 12:20 PM EST COMPARISON: None. DOSE: 11.3 mCi at rest and 31.1 mCi at stress of Tc99m Sestamibi TECHNIQUE: Patient underwent an exercise stress test per Aram protocol reaching 90% of MHR. The formal exercise stress test report is not available at time of dictation. NUCLEAR MEDICINE CARDIAC SPECT FINDINGS: Left ventricle is normal in size from stress to rest. No perfusion defects. Gated study is within normal limits. Normal wall motion and thickening. LVEF of 64%. T.I.D. Ratio: 1.14 Procedure Note Bert Chavarria MD - 06/07/2020 COMPARISON: None. DOSE: 11.3 mCi at rest and 31.1 mCi at stress of Tc99m Sestamibi TECHNIQUE: Patient underwent an exercise stress test per Aram protocolreaching 90% of MHR. The formal exercise stress test report is notavailable at time of dictation. NUCLEAR MEDICINE CARDIAC SPECT FINDINGS: Left ventricle is normal in size from stress to rest. No perfusiondefects. Gated study is within normal limits. Normal wall motion andthickening. LVEF of 64%. T.I.D. Ratio: 1.14 IMPRESSION: No ischemia or infarction. Normal ejection fraction of 64%. Mayra HERNANDEZ CV [place] CARDIAC Final Resul t documented in this encounter Visit Diagnoses Diagnosis Chest pain, unspecified type- Primary Chest pain, unspecified type documented in this encounter Care Teams Hand Ii Thermal Cutter Relationship Specialty Start Date End Date Duarte Erickson DO [address] [place] [address] [email or web address] PCP - General Internal Medicine 12/01/19 12/09/20 Duarte Erickson DO [address] [place] [address] PCP - General Internal Medicine 12/10/20 Shahid [place] MD [address] [place] [address] [email or web address] [email or web address] 06/04/15 Duarte Erickson DO [address] [place] [address] [email or web address] Insurance Assigned Provider 08/07/23 documented as of this encounter Additional Source Comments The information contained in this document represents components of the legal health record. It is not the complete legal health record.[facility]
--- OUTSIDE RECORDS SUMMARY | 2025-01-30 12:56 | XMS_ITS | Encounter Summary ---
Author Organization [facility] Address [address] [place] [address] Phone Care Team Providers Care Water Purification Chemist Name Role Phone Shahid Watkins MD Unavailable Duarte Erickson DO Unavailable Duarte Erickson DO Primary Care Provider [phone] Encounter Details Date Type Department Care Team (Latest Contact Info) Description 03/30/2023 Transcribe Orders Virtual Department 30 [place] [address] Francisca Ghosh NP 10 [place], [place] [phone] Gastroesophageal reflux disease without esophagitis (Primary Dx) Social History Tobacco Use Types [...] Description 07/02/2025 10:20 AM EST Office Visit [facility] [address] [place] [address] 3rd Floor, [address] [place] [address] Earl Deshpande MD [address] [facility], [address] [place] [address] [email or web address] documented as of this encounter Results * FL BARIUM SWALLOW ESOPHAGRAM DOUBLE CONTRAST (04/21/2023 9:13 AM EST) Anatomical Region Laterality Modality Chest Computed Radiogr aphy 04/21/2023 11:2 1 AM EST Impressions 04/21/2023 1:05 PM EST The Jimmie fundoplication appears to be intact without significant changes as compared to prior study 08/13/2030. No gross mucosal pathology. FLUOROSCOPY TIME: 1 minute 44 seconds NUMBER OF IMAGES: [id number] ATTESTATION: I, Alfonso Vallejo as teaching physician, have reviewed the images for this case and if necessary edited the report originally created by Santos Valdes. Narrative 04/21/2023 1:05 PM EST BARIUM SWALLOW ESOPHAGRAM DOUBLE CONTRAST HISTORY: Gastroesophageal reflux disease. Status post Jimmie fundoplication. COMPARISON: Upper GI series 08/13/2020. OPERATORS: Santos Valdes SUPERVISING PHYSICIAN: Alfonso Vallejo TECHNIQUE: Double contrast barium swallow examination was performed with Sodium Carbonate and Barium. FINDINGS: A preliminary lateral view of the neck demonstrates small ventral osteophytes at C3-6. No acute osseous abnormality. ESOPHAGUS: Motility: Within normal limits. Mucosa: Equivocal small diverticulum at the distal esophagus, possibly related to the wrap. No gross mucosal pathology or ulceration. Distensibility: Normal. GASTROESOPHAGEAL JUNCTION: The Jimmie wrap appears to be intact without evidence of a hiatal hernia. No significant changes as compared to prior upper GI study 08/13/2020. TABLET: There was no impedance to the passage of a 13 mm barium tablet. GASTROESOPHAGEAL REFLUX: None observed despite provocative maneuvers. Procedure Note Alfonso Vallejo MD - 04/21/2023 BARIUM SWALLOW ESOPHAGRAM DOUBLE CONTRAST HISTORY: Gastroesophageal reflux disease. Status post Nissenfundoplication. COMPARISON: Upper GI series 08/13/2020. OPERATORS: Santos Valdes SUPERVISING PHYSICIAN: Alfonso Vallejo TECHNIQUE: Double contrast barium swallow examination was performed withSodium Carbonate and Barium. FINDINGS: A preliminary lateral view of the neck demonstrates small ventralosteophytes at C3-6. No acute osseous abnormality. ESOPHAGUS: Motility: Within normal limits. Mucosa: Equivocal small diverticulum at the distal esophagus, possiblyrelated to the wrap. No gross mucosal pathology or ulceration. Distensibility: Normal. GASTROESOPHAGEAL JUNCTION: The Jimmie wrap appears to be intact withoutevidence of a hiatal hernia. No significant changes as compared to priorupper GI study 08/13/2020. TABLET: There was no impedance to the passage of a 13 mm barium tablet. GASTROESOPHAGEAL REFLUX: None observed despite provocative maneuvers. IMPRESSION: The Jimmie fundoplication appears to be intact without significant changesas compared to prior study 08/13/2030. No gross mucosal pathology. FLUOROSCOPY TIME: 1 minute 44 seconds NUMBER OF IMAGES: [id number] ATTESTATION: I, Alfonso Vallejo as teaching physician, have reviewed theimages for this case and if necessary edited the report originally createdby Santos Valdes. Francisca Ghosh ELECTROLOG OPERATOR IMG [facility] Final Res ult documented in this encounter Visit Diagnoses Diagnosis Gastroesophageal reflux disease without esophagitis- Primary Esophageal reflux Gastroesophageal reflux disease without esophagitis Esophageal reflux documented in this encounter Additional Health Concerns Assessment Noted Time PHQ-9 Depression Total Score: 4 10/14/19 23 11:30 AM EDT documented as of this encounter Care Teams Water Purification Chemist Relationship Specialty Start Date End Date Duarte Erickson DO [address] [place] [address] [email or web address] PCP - General Internal Medicine 12/10/20 Shahid Watkins MD [address] [place] [address] [email or web address] Gastroenterology 06/04/15 Duarte Erickson DO [address] [place] [address] [email or web address] Insurance Assigned Provider 08/07/23 documented as of this encounter Additional Source Comments The information contained in this document represents components of the legal health record. It is not the complete legal health record.[facility]
[2025-01-30 13:53] LABS: Hemoglobin A1C 250.2061 umol/L; Total Hemoglobin (HGBA1C) 3900.4206 umol/L
[2025-01-30 14:19] LABS: NT Pro B Type Natriuretic Pept 48.5 pg/mL (<300)
== END 2025-01-30 11:30 | disposition home or self-care (01) ==
LOC: HO.MANLDS 11:29
PROVIDERS: Visit Provider Physician Assistant
DX: E11.9 Type 2 diabetes mellitus without complications (principal); R07.89 Other chest pain
CPT/HCPCS: 36415; 83036; 83880; 85652; 86140

== ENCOUNTER 2025-03-23 11:53 | Outpatient (REF) | payer BC, SELFPAY ==
--- OUTSIDE RECORDS SUMMARY | 2021-06-27 11:30 | XMS_ITS | Encounter Summary ---
Author Organization [facility] Address [address] [place] [address] [place] [address] Phone Care Team Providers Care Nurse Plastics Name Role Phone Shahid Watkins MD Unavailable Duarte Erickson DO Primary Care Provider [phone] Encounter Details Date Type Department Care Team (Late st Contact Info) Description 06/27/2021 11:30 AM EST Hospital Encounter [facility] [address] [place] [address] Sia Conn FNP [address] [place] [address] [email or web address] Social History Tobacco Use Types Packs/Day Years Used Date Smoking Tobacco: Former Smokeless Tobacco: Former Alcohol Use Standard Drinks/Week Comments Yes 5 (1 standard drink = 0.6 oz pur e alcohol) Education Answer Date Recorded Are you interested in more education? Not on puja e 08/27/2022 Are you concerned about learning? Not on file 08/27/2022 No 08/27/2022 No 08/27/2022 Digital Access Answer Date Recorded No 09/25/2022 No 09/25/2022 Reliable internet access at home? Not on file 09/25/2022 Device with a working camera? Not on file Intimate Partner Violence Answer Date R ecorded Are you denied basic needs s uch as food, clothing, or medical care? No 10/23/2023 In the past 12 months have y ou been in a relationship with a person who hurts, threatens, or tries to control you? No 10/23/2023 Are you denied basic needs s uch as food, clothing, or medical care? No 10/23/2023 In the past 12 months have y ou been in a relationship with a person who hurts, threatens, or tries to control you? No 10/23/2023 Sex and Gender Information Value Date Recorded Sex Assigned at Male 08/10/2017 12:27 AM EDT Legal Sex Male 7:43 PM EST Gender Identity Male 08/10/2017 12:27 AM EDT Sexual Orientation Straight 08/10/2017 12 :27 AM EDT documented as of this encounter Functional Status * Calculated C-SSRS Risk Score (Lifetime/Recent) Answer Date of Assessment Author No Risk Indicated 10/23/2023 2:26 PM EDT Sharif Francis, BIRDIE * [place] Suicide Severity Rating Scale (Screener/Recent Self-Report) Question Answer Date of Assessment Author 1. Wish to be (Past 1 Month) No 024 2:26 PM EDT Sharif Francis, BIRDIE 2. Non-Specific Active Suici sy Thoughts (Past 1 Month) No 10/23/2023 2:26 PM EDT Sharif Francis, BIRDIE 6. Suicidal Behavior (Lifetime) No 4 2:26 PM EDT Sharif Francis, RN documented as of this encounter Plan of Treatment Upcoming Encounters Date Type Department Care Team (Late st Contact Info) Description 08/21/2025 12:00 PM EDT Office Visit [facility] [address] [place] [address] 3rd Floor, [address] [place] [address] Bari Silverman DO 22 [facility] [address] [place] [address] [email or web address] documented as of this encounter Procedures Procedure Name Priority Date/Time Associated Diagnosis Comments XR RIBS 3 OR MORE VIEWS WITH PA CHEST (RIGHT) Urgent/patient waiting 06/27/2021 11:37 AM EST Fall, initial encounter documented in this encounter Results * XR RIBS 3 OR MORE VIEWS WITH PA CHEST (RIGHT) (06/27/2021 11:37 AM EST) Anatomical Region Laterality Modality Chest Computed Radiogr aphy 06/27/2021 11:4 0 AM EST Impressions 06/27/2021 11:46 AM EST No displaced rib fracture. ATTESTATION: Carlos Ho as teaching physician, have reviewed the images for this case and if necessary edited the report originally created by Pedro Luis Edouard. Narrative 06/27/2021 11:46 AM EST XR RIBS 3 OR MORE VIEWS WITH PA CHEST (RIGHT) COMPARISON: Chest 2 views FINDINGS: No displaced rib fracture. PA evaluation of the chest demonstrates no focal consolidation, pleural effusion, pulmonary edema, or pneumothorax. Cardiomediastinal silhouette is normal. Procedure Note Juan Quintana MD, MPH - 06/27/2021 XR RIBS 3 OR MORE VIEWS WITH PA CHEST (RIGHT) COMPARISON: Chest 2 views FINDINGS: No displaced rib fracture. PA evaluation of the chest demonstrates no focal consolidation, pleuraleffusion, pulmonary edema, or pneumothorax. Cardiomediastinal silhouetteis normal. IMPRESSION: No displaced rib fracture. ATTESTATION: Carlos Ho as teaching physician, have reviewed theimages for this case and if necessary edited the report originally createdby Pedro Luis Edouard. Sia Conn MUD WORKER IMG XR CHEST Final Resul t documented in this encounter Visit Diagnoses Not on filedocumented in this encounter Care Teams Nurse Plastics Relationship Specialty Start Date End Date Duarte Erickson DO [address] [place] [address] PCP - General Internal Medicine 12/10/20 03/05/25 Shahid Watkins MD [address] [place] [address] [email or web address] Gastroenterology 06/04/15 documented as of this encounter Additional Source Comments The information contained in this document represents components of the legal health record. It is not the complete legal health record.[facility]
--- OUTSIDE RECORDS SUMMARY | 2025-03-20 11:15 | XMS_ITS | Encounter Summary ---
Author Organization [facility] Address [address] [facility] [address] [place] [address] Phone Care Team Providers Care Sales Recruitment Specialist Name Role Phone Shahid Watkins MD Unavailable Duarte Erickson DO Unavailable Duarte Erickson DO Primary Care Provider [phone] Encounter Details Date Type Department Care Team (Latest Contact Info) Description 03/20/2025 11:15 AM EST Office Visit [facility] [address] [facility] 3rd Floor, [address] [place] [address] Bari Silverman DO 22 [facility] [address] [place] [address] [id number] [email or web address] Atherosclerosis of [place] coronary artery of [place] heart without angina pectoris (Primary Dx); Pure hypercholesterolemia; Gastroesophageal reflux disease with esophagitis without hemorrhage Social History Tobacco Use Types Packs/Day Years [...] Sign Reading Time Taken Comments Blood Pressure 110/68 03/20/2025 11:15 AM EST Pulse 84 03/20/2025 11:15 AM EST Temperature - - Respiratory Rate - - Oxygen Saturation 97% 03/20/2025 11:15 AM EST Inhaled Oxygen Concentration - - Weight 77.6 kg (171 lb) 03/20/2025 11:15 AM EST Height 167.6 cm (5' 5.98 ) 03/20/2025 11:[address] Body Mass Index 27.61 03/20/2025 11:15 AM EST documented in this encounter Progress Notes * Bari Silverman, - 03/20/2025 11:15 AM EST History of present illness: I the pleasure of seeing your patient in the office. As you know he is 64 years old he had LAD PCI in the remote past he had what I would call an equivocal stress test that was recently done in the hospital. His anginal symptom when he had his infarct was right-sided shoulder and arm discomfort with exertion he has not had any of that since he actually can go up several flights of stairs with no symptoms at all. At this time we are not going to jump in to do a repeatcatheterization he does have significant risk factors including diabetes hypertension and dyslipidemia. I will reevaluate with close follow-up in 3 to 4 months time I asked him to start exercising sowe have a gauge as to his symptoms with some significant activity. LDL should be less than 70 mg/dLhemoglobin is A1c should be less than 7 and blood pressure should be less than 130 which it is. GENERAL ROS: General Negative for:, fever, chills. HEENT Negative for: headache, sore throat, congestion. Cardiovascular Negative for:, chest pain. Respiratory Negative for: cough, shortness of breath. GI/ Negative for: abdominal pain, nausea, vomiting, diarrhea. Musculoskeletal Negative for:, joint pain, muscle pain. Extremities Negative for, edema. Skin Negative for: rash, Negative. Neurological negative for headaches. Psychiatric Negative for, anxiety, depression. Endocrinology negative for: polyuria, polydipsia, polyphagia, weight loss. Discussed importance of leading heart healthy lifestyle with regular exercise of 30 minutes daily, Mediterranean diet, restriction of sodium intake, and maintenance of ideal body weight. Details of office evaluation below. Chris Hand is a 64 y.o. male 64 y.o. Atherosclerosis of tatitle[place] coronary artery of [place] heart without angina pectoris [I25.10] Current Outpatient Medications Medication Sig Dispense Refill Last Dispense acetaminophen (TYLENOL) 325 mg tablet Take 650 mg by mouth every 6 (six) hours as needed. Unknown (patient-reported) amoxicillin (AMOXIL) 500 MG capsule Dental Unknown (patient-reported) aspirin 81 mg Cap Take 81 mg by mouth daily. Indications: treatment to prevent a heart attack Unknown (patient-reported) famotidine (PEPCID) 40 MG tablet Unknown (patient-reported) levothyroxine (SYNTHROID, LEVOTHROID) 50 MCG tablet Take 1 tablet by mouth daily. Unknown (patient-reported) metFORMIN (GLUCOPHAGE) 500 MG tablet Take 500 mg by mouth. (Patient taking differently: Take 1,500 mg by mouth.) Unknown (patient-reported) metoprolol succinate (TOPROL-XL) 50 MG 24 hr tablet Take 50 mg by mouth daily. Unknown (patient-reported) rosuvastatin (CRESTOR) 40 MG tablet Take 40 mg by mouth. Unknown (patient-reported) tamsulosin (FLOMAX) 0.4 mg Cap Take by mouth daily. Unknown (patient-reported) valsartan (DIOVAN) 40 MG tablet Take 40 mg by mouth 2 (two) times a day. Unknown (patient-reported) clobetasol (TEMOVATE) 0.05 % cream (Patient not taking: Reported on 03/20/2025) Unknown (patient-reported) clobetasol (TEMOVATE) 0.05 % external solution (Patient not taking: Reported on 03/20/2025) Unknown(patient-reported) diclofenac sodium (VOLTAREN) 1 % Gel Apply 2 g topically 4 (four) times a day. (Patient not taking:Reported on 03/20/2025) 1 Tube 2 Unknown (outside pharmacy) diclofenac sodium (VOLTAREN) 50 MG EC tablet Take 50 mg by mouth 2 (two) times a day. (Patient not taking: Reported on 03/20/2025) Unknown (patient-reported) fluticasone propionate (FLONASE) 50 mcg/actuation nasal spray (Patient not taking: Reported on 03/20/2025) Unknown (patient-reported) LORazepam (ATIVAN) 1 MG tablet (Patient not taking: Reported on 03/20/2025) Unknown (patient-reported) metoclopramide HCl (REGLAN) 10 MG tablet TAKE 1 TABLET BY MOUTH IN THE EVENING FOR 6 WEEKS ONCE DAILY FOR 44 DAYS (Patient not taking: Reported on 03/20/2025) Unknown (patient-reported) naproxen (NAPROSYN) 500 MG tablet Take 1 tablet (500 mg total) by mouth 2 (two) times a day for 3 days. Then twice daily as needed for pain, inflammation (Patient not taking: Reported on 03/20/2025) 20 tablet 0 Unknown (outside pharmacy) omeprazole (PRILOSEC) 20 MG capsule TAKE 1 CAPSULE BY MOUTH EVERY DAY 30 MINUTES BEFORE BREAKFAST (Patient not taking: Reported on 03/20/2025) Unknown (patient-reported) pantoprazole (PROTONIX) 40 MG tablet (Patient not taking: Reported on 03/20/2025) Unknown (patient-reported) prochlorperazine (COMPAZINE) 10 MG tablet (Patient not taking: Reported on 03/20/2025) Unknown (patient-reported) ticagrelor (BRILINTA) 90 mg Tab Take 90 mg by mouth 2 (two) times a day. (Patient not taking: Reported on 03/20/2025) Unknown (patient-reported) traZODone (DESYREL) 50 MG tablet as needed. (Patient not taking: Reported on 03/20/2025) Unknown (patient-reported) No current facility-administered medications for this visit. Patient has no known allergies. Past Medical History: Diagnosis Date Baer's esophagus GERD (gastroesophageal reflux disease) Hyperlipidemia Hypothyroid Past Surgical History: Procedure Laterality Date ESOPHAGEAL PH IMPEDANCE N/A 10/24/2015 Performed by Pal [facility]eman MD, MPH at [facility] 4 ENDOSCOPY YANICK FUNDOPLICATION N/A 2014 YANICK FUNDOPLICATION N/A posterior partial yanick PH PROBE REMOVAL ( ON MEDS) N/A 10/25/2015 Performed by Pal Wiseman MD, MPH at [facility] 4 ENDOSCOPY UNCODED SURGICAL HISTORY biopsy colon UNCODED SURGICAL HISTORY wisdom teeth Family History Problem Relation Age of Onset Cervical cancer Mother Malignant tumor of cervix Heart disease Mother Arthritis Unspecified Diabetes Unspecified Cancer Unspecified Heart disease Unspecified Social History Tobacco Use Smoking status: Former Smokeless tobacco: Former Substance Use Topics Alcohol use: Yes Alcohol/week: 5.0 standard drinks of alcohol Types: 5 Standard drinks or equivalent per week Drug use: Yes Types: Marijuana Examination BP 110/68 Pulse 84 Ht 167.6 cm (5' 5.98 ) Wt 77.6 kg (171 lb) SpO2 97% BMI 27.61 kg/m?? GENERAL APPEARANCE: NAD. HEENT: NC/AT, EOMI, PERRL, nose clear and TMs WNL. CAROTID UPSTROKE: normal. JVD: normal. HEART SOUNDS: LUNGS: clear to auscultation. ABDOMEN: no hepatomegaly; no hepato-jugular reflux. EXTREMITIES: no leg edema. PERIPHERAL PULSES: intact. NEUROLOGIC: grossly intact. Assessment and Plan: Atherosclerosis of tatitlek coronary artery of [place] heart without angina pectoris On clinical assessment I do not feel that he has repeat or recurrent anginal symptoms. I will give him close follow-up in August I asked him to start exercising so we can gauge if he truly has recurrent angina. Hyperlipidemia LDL should be less than 70 and A1c should be less than 7. GERD (gastroesophageal reflux disease) Present but stable Bari Silverman DO . 03/20/2025 documented in this encounter Miscellaneous Notes * Assessment & Plan Note - Bari Silverman DO - 03/20/2025 11:46 AM EST Associated Problem(s): GERD (gastroesophageal reflux disease) Present but stable * Assessment & Plan Note - Bari Silverman DO - 03/20/2025 11:46 AM EST Associated Problem(s): Hyperlipidemia LDL should be less than 70 and A1c should be less than 7. * Assessment & Plan Note - Bari Silverman DO - 03/20/2025 11:45 AM EST Associated Problem(s): Atherosclerosis of tatitle[place] coronary artery of [place] heart without angina pectoris On clinical assessment I do not feel that he has repeat or recurrent anginal symptoms. I will give him close follow-up in August I asked him to start exercising so we can gauge if he truly has recurrent angina. documented in this encounter Plan of Treatment Upcoming Encounters Date Type Department Care Team (Late st Contact Info) Description 08/21/2025 12:00 PM EDT Office Visit [facility] [address] [place] [address] [address] [facility], [address] [place] [address] Bari Silverman DO [address] [place] [address] [email or web address] documented as of this encounter Visit Diagnoses Diagnosis Atherosclerosis of tatitle[place] coronary artery of [place] heart without angina pectoris- Primary Pure hypercholesterolemia Gastroesophageal reflux disease with esophagitis without hemorrhage documented in this encounter Additional Health Concerns Assessment Noted Time PHQ-9 Depression Total Score: 4 10/14/19 23 11:30 AM EDT documented as of this encounter Care Teams Sales Recruitment Specialist Relationship Specialty Start Date End Date Duarte Erickson DO [address] [place] [address] [place] [address] PCP - General Internal Medicine 03/06/25 Shahid Watkins MD [address] [place] [address] [email or web address] Gastroenterology 06/04/15 Duarte Erickson DO [address] [place] [address] [place] [address] [email or web address] Insurance Assigned Provider 08/07/23 documented as of this encounter Additional Source Comments The information contained in this document represents components of the legal health record. It is not the complete legal health record.[facility]
--- OUTSIDE RECORDS SUMMARY | 2025-03-23 12:36 | XMS_ITS | Encounter Summary ---
Author Organization [facility] Address [address] [facility] [address] [place] [address] Phone Care Team Providers Care Solar Thermal Technician Name Role Phone Shahid Watkins MD Unavailable Bigda, Duarte A DO Unavailable Bigda, Duarte A DO Primary Care Provider [phone] Bigda, Duarte A DO Primary Care Provider [phone] Encounter Details Date Type Department Care Team (Late st Contact Info) Description 08/21/2022 Procedure Pass [address] [place] [address] Social History Tobacco Use Types Packs/Day Years [...] Description 08/21/2025 12:00 PM EDT Office Visit [facility] [address] [facility] 3rd Floor, [address] [place] [address] Bari Silverman, [address] [facility] [address] [place], [place] [phone] documented as of this encounter Visit Diagnoses Not on filedocumented in this encounter Care Teams Solar Thermal Technician Relationship Specialty Start Date End Date GeorginaDuarteDO [address] [place] [address] PCP - General Internal Medicine 12/10/20 03/05/25 Duarte Erickson DO [address] [place] [address] PCP - General Internal Medicine 03/06/25 Shahid Watkins MD [address] [place] [address] [email or web address] 06/04/15 Duarte Erickson DO [address] [place] [address] Insurance Assigned Provider 08/07/23 documented as of this encounter Additional Source Comments The information contained in this document represents components of the legal health record. It is not the complete legal health record.[facility]
--- OUTSIDE RECORDS SUMMARY | 2025-03-23 12:36 | XMS_ITS | Encounter Summary ---
Author Organization [facility] Address [address] [place] [phone] Phone Care Team Providers Care Negative Turner Name Role Phone Shahid Watkins MD Unavailable Bigda, Duarte A DO Unavailable Bigda, Duarte A DO Primary Care Provider [phone] Bigda, Duarte A DO Primary Care Provider [phone] Bigda, Duarte A DO Primary Care Provider [phone] Reason for Referral * MRI/CAT Scan - Closed Specialty Diagnoses / Procedures Referred By João choi Referred To Contact Radiology Diagnoses Chest pain, unspecified type Procedures NC Myocardial Perfusion Exercise Multiple Mayra Conrad PA Phone: tel: fax: [address] Phone: tel: Referral ID Status Reason Start Date Expiration Date Visits Re quested Visits Authorized [id number] Closed 05/27/2020 05/27/2021 1 1 Encounter Details Date Type Department Care Team (Latest Contact Info) Description 05/27/2020 Transcribe Orders [facility] Department [address] [place] [address] Mayra Conrad PA [address] [place] [address] [place] [address] [place] [address] Chest pain, unspecified type (Primary Dx) Social [...] Description 08/21/2025 12:00 PM EDT Office Visit [facility] [address] [place] [address] 3rd Floor, [address] [place] [address] Bari Silverman DO [address] [facility] [address] [place] [phone] [email or web address] documented as of this encounter Results * [...] or infarction. Normal ejection fraction of 64%. us Mayra HERNANDEZ CV NM CARDIAC Final Resul t documented in this encounter Visit Diagnoses Diagnosis Chest pain, unspecified type- Primary Chest pain, unspecified type documented in this encounter Care Teams Negative Turner Relationship Specialty Start Date End Date Duarte Erickson DO [address] [place] [address] PCP - General Internal Medicine 12/01/19 12/09/20 Duarte Erickson DO [address] [place] [address] PCP - General Internal Medicine 12/10/20 03/05/25 Duarte Erickson DO [address] [place] [address] PCP - General Internal Medicine 03/06/25 Shahid Watkins MD [address] [place] [phone] [email or web address] Gastroenterology 06/04/15 Duarte Erickson DO [address] [place] [address] [email or web address] Insurance Assigned Provider 08/07/23 documented as of this encounter Additional Source Comments The information contained in this document represents components of the legal health record. It is not the complete legal health record.[facility]
--- OUTSIDE RECORDS SUMMARY | 2025-03-23 12:36 | XMS_ITS | Encounter Summary ---
Author Organization [facility] Address [address] [place] [address] Phone Care Team Providers Care Scanning Clerk Name Role Phone Shahid Watkins MD Unavailable Bigda, Duarte A DO Unavailable Bigda, Duarte A DO Primary Care Provider [phone] Bigda, Duarte A DO Primary Care Provider [phone] Encounter Details Date Type Department Care Team (Latest Contact Info) Description 03/30/2023 Transcribe Orders Virtual Department 30 [place] [address] Francisca Ghosh NP 10 [place] [address] Gastroesophageal reflux disease without esophagitis (Primary Dx) [...] Description 08/21/2025 12:00 PM EDT Office Visit [facility] [address] [facility] 3rd Floor, [address] [place] [address] Bari Silverman DO 22 [facility] [address] [place] [address] [email or web address] documented as of this encounter Results * [...] report originally createdby Santos Valdes. Francisca Ghosh NP IMG [place] MISC Final Res ult documented in this encounter Visit Diagnoses Diagnosis Gastroesophageal reflux disease without esophagitis- Primary Esophageal reflux Gastroesophageal reflux disease without esophagitis Esophageal reflux documented in this encounter Additional Health Concerns Assessment Noted Time PHQ-9 Depression Total Score: 4 10/14/19 23 11:30 AM EDT documented as of this encounter Care Teams Scanning Clerk Relationship Specialty Start Date End Date Duarte Erickson DO [address] [place] [address] [email or web address] PCP - General Internal Medicine 12/10/20 03/05/25 Duarte Erickson DO [address] [place] [address] [email or web address] PCP - General Internal Medicine 03/06/25 Shahid Watkins MD [address] [place] [address] [email or web address] Gastroenterology 06/04/15 Duarte Erickson DO [address] [place] [address] [email or web address] Insurance Assigned Provider 08/07/23 documented as of this encounter Additional Source Comments The information contained in this document represents components of the legal health record. It is not the complete legal health record.[facility]
--- OUTSIDE RECORDS SUMMARY | 2025-03-23 12:36 | XMS_ITS | Encounter Summary ---
Author Organization [facility] Address [address] [place] [address] [place] [address] Phone Care Team Providers Care Assistant Director Of Financial Aid Name Role Phone Shahid Watkins MD Unavailable Bigda, Duarte A DO Unavailable Bigda, Duarte A DO Primary Care Provider [phone] Bigda, Duarte A DO Primary Care Provider [phone] Encounter Details Date Type Department Care Team (Latest Contact Info) Description 07/29/2022 Transcribe Orders Virtual Department [address] [place] [address] Mayra Conrad PA 6 [facility] [place] [address] [place] [address] Chronic maxillary sinusitis (Primary Dx) Social History [...] Description 08/21/2025 12:00 PM EDT Office Visit [facility] [address] [place] [address] 3rd Floor, [address] [place] [address] DalilaabbeBari kimball, 22 [facility] [address] [place] [address] [email or web address] documented as of this encounter Results * [...] sinusitis documented in this encounter Care Teams Assistant Director Of Financial Aid Relationship Specialty Start Date End Date Duarte Erickson DO [address] [place] [address] [email or web address] PCP - General Internal Medicine 12/10/20 03/05/25 Duarte Erickson DO [address] [place] [address] [email or web address] PCP - General Internal Medicine 03/06/25 Sahhid Watkins MD [address] [place] [address] [email or web address] 06/04/15 Duarte Erickson DO [address] [place] [address] [email or web address] Insurance Assigned Provider 08/07/23 documented as of this encounter Additional Source Comments The information contained in this document represents components of the legal health record. It is not the complete legal health record.[facility]
--- OUTSIDE RECORDS SUMMARY | 2025-03-23 12:36 | XMS_ITS | Encounter Summary ---
Author Organization [facility] Address [address] [place] [address] Phone Care Team Providers Care Enterprise Data Architect Name Role Phone Shahid Watkins MD Unavailable Bigda, Duarte A DO Unavailable Bigda, Duarte A DO Primary Care Provider [phone] Bigda, Duarte A DO Primary Care Provider [phone] Encounter Details Date Type Department Care Team (Late st Contact Info) Description 08/26/2022 Procedure Pass [facility], Ct Scan - [address] [id number] Social History Tobacco Use Types Packs/Day Years [...] Description 08/21/2025 12:00 PM EDT Office Visit [facility] [address] [facility] 3rd Floor, [address] [place] [address] Bari Silverman DO 22 [facility] [address] [place] [address] documented as of this encounter Visit Diagnoses Not on filedocumented in this encounter Care Teams Enterprise Data Architect Relationship Specialty Start Date End Date Duarte Erickson DO [address] [place] [address] PCP - General Internal Medicine 12/10/20 03/05/25 Duarte Erickson DO [address] [place] [address] PCP - General Internal Medicine 03/06/25 Shahid Watkins MD [address] [place] [address] [email or web address] Gastroenterology 06/04/15 Duarte Erickson DO [address] [place] [address] Insurance Assigned Provider 08/07/23 documented as of this encounter Additional Source Comments The information contained in this document represents components of the legal health record. It is not the complete legal health record.[facility]
--- OUTSIDE RECORDS SUMMARY | 2025-03-23 12:36 | XMS_ITS | Encounter Summary ---
Author Organization [facility] Address [address] [place] [address] [address] [place] [address] Phone Care Team Providers Care Baccarat Manager Name Role Phone Shahid Watkins MD Unavailable Duarte Erickson DO Unavailable Duarte Erickson DO Primary Care Provider [phone] Reason for Referral * MRI/CAT Scan - Closed Specialty Diagnoses / Procedures Referred By João t Referred To Contact Radiology Diagnoses Chest pain, unspecified type Procedures NC Stress Result for Nuclear Stress Test Lamar Melvin CNP [address] [place] [address] Phone: tel: fax: [email or web address]:[email or web address] Referral ID Status Reason Start Date Expiration Date Visits Re quested Visits Authorized [id number] Closed 03/06/2025 03/06/2026 1 1 Encounter Details Date Type Department Care Team (Latest Contact Info) Description 03/06/2025 Ancillary Orders [facility] 22 [facility] 3rd Floor, [address] [place], [place] [id number] Lamar Melvin CNP [address] [place] [address] [email or web address] Chest pain, unspecified type (Primary Dx) Social [...] Description 08/21/2025 12:00 PM EDT Office Visit [facility] [address] [place] [address] 3rd [facility], [address] [place] [address] Bari Silverman DO [address] [place] [address] [email or web address] documented as of this encounter Results * NC Stress Result for Nuclear Stress Test (03/06/2025 12:17 PM EST) Max Predicted Heart Rate 157 bpm [facility] Max BP Systolic 154 mmHg [facility] Max BP Diastolic 86 mmHg [facility] Max HR 148 BPM [facility] Resting HR 83 BPM [facility] Resting BP Systolic 114 mmHg [facility] Resting BP Diastolic 70 mmHg [facility] Peak METS 10.1 METS [facility] Peak HR 146 BPM [facility] Anatomical Region Laterality Modality Heart Other 03/06/2025 10:5 6 AM EST 03/06/2025 11:56 AM EST Narrative 03/07/2025 7:56 AM EST Impression: ECG changes suggestive of ischemia at adequate workload on the Aram protocol. Await nuclear images. Stress Findings The resting heart rate was 83 BPM. The resting BP was 114/70 mmHg. A peak heart rate of 146 BPM was achieved. ECG REPORT- Pt exercised for 8:10 min on a ARAM protocol achieving 10.10 METS. Test terminated due to fatigue. Baseline resting HR was 57 bpm. Max heart rate achieved was 148 bpm (94% MPHR). 1. EKG - Baseline EKG showed sinus bradycardia with LAD. During exercise, there was up to [address] depressions V4 through V6. There were also slight changes in the inferior leads which did not meet strict criteria for ischemia. 2. SYMPTOMS - The patient was asymptomatic at baseline. By stage III of exercise, he reported a 2/10 centralized to slightly right sided chest heat which worsened to 3/10 by peak exercise. Symptoms spontaneously resolved by 3 to 4 minutes into the recovery period. 3. EXERCISE PHYSIOLOGY - Good functional capacity for age. Normal BP response to exercise. 4. ARRHYTHMIAS - Frequent isolated PVCs. Conclusion - Abnormal stress test. There were EKG changes suggestive of ischemia and symptoms concerning for angina. Nuclear images pending and will be reported separately. See attached stress report for full details. Julita Fermin PA-C with Dr. Silverman. Response to Stress The patient exercised for minutes and seconds, achieving 10.1 METS at peak exercise. Baseline blood pressure was 114/70 mmHg, and baseline heart rate was 83 bpm. The patient achieved a peak heart rate of 146 bpm, which is% of their maximum predicted heart rate. Lamar Melvin PROFESSOR SCULPTURE CV NM CARDIAC Final Re sult documented in this encounter Visit Diagnoses Diagnosis Chest pain, unspecified type- Primary Chest pain, unspecified type documented in this encounter Additional Health Concerns Assessment Noted Time PHQ-9 Depression Total Score: 4 06/13/20 23 11:30 AM EDT documented as of this encounter Care Teams Baccarat Manager Relationship Specialty Start Date End Date Duarte Erickson DO [address] [place] [address] [email or web address] PCP - General Internal Medicine 03/06/25 Shahid Watkins MD [address] [address] [email or web address] Gastroenterology 06/04/15 Duarte Erickson DO [address] [place] [address] [email or web address] Insurance Assigned Provider 08/07/23 documented as of this encounter Additional Source Comments The information contained in this document represents components of the legal health record. It is not the complete legal health record.[facility]
--- OUTSIDE RECORDS SUMMARY | 2025-03-23 12:36 | XMS_ITS | Encounter Summary ---
Author Organization [facility] Address [address] [place] [address] Phone Care Team Providers Care Wooden Tank Erector Name Role Phone Shahid Watkins MD Unavailable Bigda, Duarte A DO Unavailable Bigda, Duarte A DO Primary Care Provider [phone] Bigda, Duarte A DO Primary Care Provider [phone] Reason for Referral * MRI/CAT Scan - Closed Specialty Diagnoses / Procedures Referred By João choi Referred To Contact Radiology Diagnoses Chronic maxillary sinusitis Procedures CT Face Mayra Conrad PA 6 [facility] [place] [address] Phone: tel: fax: Referral ID Status Reason Start Date Expiration Date Visits Re quested Visits Authorized [id number] Closed 08/26/2022 1 1 Encounter Details Date Type Department Care Team (Latest Contact Info) Description 08/26/2022 Transcribe Orders Virtual Department [address] [place] [address] Mayra Conrad PA 6 [facility] [place] [address] Chronic maxillary sinusitis (Primary Dx) Social History [...] Description 08/21/2025 12:00 PM EDT Office Visit [facility] 22 [facility] 3rd Floor, [address] [place], [place] [phone] Bari Silverman DO 22 [facility] [address] [place] [phone] [email or web address] documented as of this encounter Results * [...] Right nasal turbinate mucosal congestion. Mayra HERNANDEZ IMG CT HEAD/NECK Final Resu lt documented in this encounter Visit Diagnoses Diagnosis Chronic maxillary sinusitis- Primary Chronic maxillary sinusitis documented in this encounter Care Teams Wooden Tank Erector Relationship Specialty Start Date End Date Duarte Erickson DO [address] [place] [address] PCP - General Internal Medicine 12/10/20 03/05/25 Duarte Erickson DO [address] [place] [address] PCP - General Internal Medicine 03/06/25 Shahid Watkins MD [address] [place] [address] [email or web address] Gastroenterology 06/04/15 Duarte Erickson DO [address] [place] [address] Insurance Assigned Provider 08/07/23 documented as of this encounter Additional Source Comments The information contained in this document represents components of the legal health record. It is not the complete legal health record.[facility]
--- OUTSIDE RECORDS SUMMARY | 2025-03-23 12:36 | XMS_ITS | Encounter Summary ---
Author Organization [facility] Address [address] [place] [address] [place] [address] Phone Care Team Providers Care Vehicle Calibration Engineer Name Role Phone Shahid Watkins MD Unavailable Duarte Erickson DO Unavailable Duarte Erickson DO Primary Care Provider [phone] Duarte Erickson DO Primary Care Provider [phone] Reason for Referral * Consultation (Elective) - Closed Specialty Diagnoses / Procedures Referred By João choi Referred To Contact Cardiac Rehabilitation Diagnoses Myocardial infarction, unspecified [place] type, unspecified artery Duarte Erickson DO 179 [facility] [place], [place] Phone: tel: fax: mailto: [facility] [address] [place] [address] Phone: tel: Referral ID Status Reason Start Date Expiration Date Visits Re quested Visits Authorized [id number] Closed 09/25/2022 09/26/2023 1 1 Encounter Details Date Type Department Care Team (Late st Contact Info) Description 09/25/2022 Transcribe Orders Virtual Department [address] [place] [address] Duarte Erickson DO 179 [facility] [place], [place] [email or web address] Myocardial infarction, unspecified [place] type, unspecified artery (Primary Dx) Social History [...] Description 08/21/2025 12:00 PM EDT Office Visit [facility] [address] [place] [address] 3rd [facility], [address] [place] [address] Bari Silverman DO [address] [place] [address] [email or web address] Scheduled Referrals Name Type Priority Associated Diagnoses Orde r Schedule Ambulatory referral to [facility] Cardiac Rehab Outpatient Referral Routine Myocardial infarction, unspecified [place] type, unspecified artery Ordered: 09/25/2022 documented as of this encounter Visit Diagnoses Diagnosis Myocardial infarction, unspecified [place] type, unspecified artery- Primary documented in this encounter Care Teams Vehicle Calibration Engineer Relationship Specialty Start Date End Date Duarte Erickson DO 179 [facility] [place] [address] PCP - General Internal Medicine 12/10/20 03/05/25 Duarte Erickson DO [address] [place] [address] [email or web address] PCP - General Internal Medicine 03/06/25 Shahid Watkins MD [address] [place] [address] [email or web address] Gastroenterology 06/04/15 Duarte Erickson DO [address] [place] [address] [email or web address] Insurance Assigned Provider 08/07/23 documented as of this encounter Additional Source Comments The information contained in this document represents components of the legal health record. It is not the complete legal health record.[facility]
--- OUTSIDE RECORDS SUMMARY | 2025-03-23 12:36 | XMS_ITS | Encounter Summary ---
Author Organization [facility] Address [address] [place] [address] [place] [address] Phone Care Team Providers Care Poultry Picking Machine Tender Name Role Phone Shahid Watkins MD Unavailable Bigda, Duarte A DO Unavailable Bigda, Duarte A DO Primary Care Provider [phone] Bigda, Duarte A DO Primary Care Provider [phone] Bigda, Duarte A DO Primary Care Provider [phone] Encounter Details Date Type Department Care Team (Late st Contact Info) Description 05/17/2020 Ancillary Orders [facility],Outside Imaging [address] [place], [place] [phone] System, Provider Not In, [facility] [address] [address] Social History Tobacco Use Types Packs/Day Years [...] Description 08/21/2025 12:00 PM EDT Office Visit [facility] [address] [place] [address] [address]rd Floor, [address] [place] [address] Bari Silverman DO 22 [facility] [address] [place] [address] documented as of this encounter Results * [...] on filedocumented in this encounter Care Teams Poultry Picking Machine Tender Relationship Specialty Start Date End Date Duarte Erickson DO 179 [facility] [place] [address] PCP - General Internal Medicine 12/01/19 12/09/20 Duarte Erickson DO [address] [place] [address] PCP - General Internal Medicine 12/10/20 03/05/25 Duarte Erickson DO [address] [facility] [place] [address] PCP - General Internal Medicine 03/06/25 Shahid Watkins MD [address] [place] [address] [email or web address] Gastroenterology 06/04/15 Duarte Erickson DO [address] [facility] [place] [address] [email or web address] Insurance Assigned Provider 08/07/23 documented as of this encounter Additional Source Comments The information contained in this document represents components of the legal health record. It is not the complete legal health record.[facility]
--- OUTSIDE RECORDS SUMMARY | 2025-03-23 12:36 | XMS_ITS | Encounter Summary ---
Author Organization [facility] Address [address] [place] [address] Phone Care Team Providers Care Book Trimmer Name Role Phone Shahid Watkins MD Unavailable Bigda, Duarte A DO Unavailable Bigda, Duarte A DO Primary Care Provider [phone] Bigda, Duarte A DO Primary Care Provider [phone] Bigda, Duarte A DO Primary Care Provider [phone] Encounter Details Date Type Department Care Team (Late st Contact Info) Description 06/07/2020 Ancillary Orders Virtual Department [address] [place] [address] Mayra Conrad PA 6 [facility] [place] [address] Chest pain, unspecified type Social History Tobacco [...] Description 08/21/2025 12:00 PM EDT Office Visit [facility] 22 [facility] 3rd Floor, [address] [place] [address] Bari Silverman DO 22 [facility] [address] [place] [address] documented as of this encounter Visit Diagnoses Diagnosis Chest pain, unspecified type documented in this encounter Care Teams Book Trimmer Relationship Specialty Start Date End Date Duarte Erickson DO [address] [place] [address] PCP - General Internal Medicine 12/01/19 12/09/20 Duarte Erickson DO [address] [place] [address] PCP - General Internal Medicine 12/10/20 03/05/25 Duarte Erickson DO [address] [place] [address] PCP - General Internal Medicine 03/06/25 Shahid Watkins MD [address] [place] [address] [email or web address] Gastroenterology 06/04/15 Duarte Erickson DO [address] [place] [address] Insurance Assigned Provider 08/07/23 documented as of this encounter Additional Source Comments The information contained in this document represents components of the legal health record. It is not the complete legal health record.[facility]
--- OUTSIDE RECORDS SUMMARY | 2025-03-23 12:36 | XMS_ITS | Clinical Summary ---
Author Organization [facility] Address [address] [place] [address] Care Team Providers Care Credit Intern Name Role Phone Duarte Erickson Primary Care Provider [phone] Allergies No known active allergies Medications levothyroxine [...] Social Drivers of Health Annual Screening 05/03/2024 Influenza Vaccine (#1) 2024 , 02/06/2019, 03/15/2018 COVID-19 Vaccine ( season) 2025 04/21/2022, 10/21/2021, 03/20/2021, Additional history exists RSV Vaccine (60+ years old and patients) (1 - 1-dose 75+ series) 2036 Hepatitis B Vaccines Aged Out No long er eligible based on patient's age to complete this topic Insurance [facility] HMO/POS Care Teams Credit Intern Relationship Specialty Start Date End Date Georgina Duarte [address] [place] [phone] PCP - General Internal Medicine 12/20/20
--- OUTSIDE RECORDS SUMMARY | 2025-03-23 12:36 | XMS_ITS | Encounter Summary ---
Author Organization [facility] Address [address] [place] [address] Phone Care Team Providers Care Burrer Operator Name Role Phone Duarte Erickson DO Primary Care Provider [phone] Shahid Watkins MD Unavailable August PA-C Primary Care Provider + [phone] Georgina, Duarte Lang DO Unavailable Georgina, Duarte Lang DO Primary Care Provider [phone] Nadiada, Duarte Lang DO Primary Care Provider [phone] Bigda, Duarte Lang DO Primary Care Provider [phone] Encounter Details Date Type Department Care Team (Late st Contact Info) Description 08/13/2017 Transcribe Orders [facility] [address] [place] [address] Duarte Erickson DO 179 [facility] [place] [address] [place] [address] Impaired fasting glucose (Primary Dx); Pure hypercholesterolemi [...] Description 08/21/2025 12:00 PM EDT Office Visit [facility] 22 [facility] 3rd Floor, [address] [place] [address] Bari Silverman, 22 [facility] [address] [place] [address] [email or web address] documented as of this encounter Results * PSA (screening) (08/13/2017 7:42 AM EDT) PSA 0.49 0 - 4.00 ng/mL [facility] Blood 08/13/2017 7:42 AM EDT 08/13/2017 8:44 AM EDT us Duarte A Bigda DO LAB BLOOD BKR ORDERABLES Final R esult Performing Organization Address City/[facility]/ZIP Co de Phone Number [address] [address] * TSH (08/13/2017 7:42 AM EDT) TSH 2.70 0.27 - 4.20 uIU/mL [facility] Blood 08/13/2017 7:42 AM EDT 08/13/2017 8:26 AM EDT us Duarte A Bigda DO LAB BLOOD BKR ORDERABLES Final R esult Performing Organization Address City/[facility]/ZIP Co de Phone Number [address] [address] * (ABNORMAL) Lipid panel (08/13/2017 7:42 AM EDT) HDL 50 mg/dL [facility] Comment: Interpretation: Risk Level Males Decreased >45 mg/dL Average 40-45 mg/dL Increased <40 mg/dL CHOLESTEROL 240 0 - 240 mg/dL [facility] TRIGLYCERIDES 94 30 - 160 mg/dL [facility] LDL 171(H) 50 - 129 mg/dL [facility] Comment: LDL levels in terms of risk for coronary heart disease: <100 mg/dL: Optimal 100-129 mg/dL: Near or above optimal 130-159 mg/dL: Borderline high 160-189 mg/dL: High >190 mg/dL: Very High CARDIAC RISK RATIO 4.8 3.4 - 5.0 [facility] Blood 08/13/2017 7:42 AM EDT 08/13/2017 8:26 AM EDT us Duarte Erickson DO LAB BLOOD BKR ORDERABLES Final R esult [facility] [address] [place] [address] * Comprehensive metabolic panel (08/13/2017 7:42 AM EDT) SODIUM 142 133 - 146 mmol/L [facility] POTASSIUM 4.5 3.3 - 5.1 mmol/L [facility] CHLORIDE 100 96 - 108 mmol/L [facility] CO2 28 21 - 35 mmol/L [facility] BUN 14 6 - 19 mg/dL [facility] CREATININE 1.00 0.5 - 1.5 mg/dL [facility] GLUCOSE 94 70 - 99 mg/dL [facility] ALBUMIN 4.4 3.9 - 4.8 g/dL [facility] TOTAL PROTEIN 7.2 6.5 - 8.0 g/dL [facility] CALCIUM 9.8 8.4 - 10.3 mg/dL [facility] ALKALINE PHOSPHATASE 63 39 - 117 U/L [facility] TOTAL BILIRUBIN 0.5 0.0 - 1.2 mg/dL [facility] AST 22 0 - 37 U/L [facility] ALT 27 0 - 40 U/L [facility] GLOBULIN 2.8 1 - 4.8 g/dL [facility] EGFR 84 >59 mL/min/1.7 3m2 [facility] Comment:If patient is black, multiply result by 1.159. The eGFR calculation has changed from the MDRD equation to the CKD-EPI equation as of July 06, 2017. ANION GAP 19 10 - 20 mmol/L [facility] Blood 08/13/2017 7:42 AM EDT 08/13/2017 8:26 AM EDT us Duarte Erickson DO LAB BLOOD BKR ORDERABLES Final R esult [facility] [address] [place] [address] documented in this encounter Visit Diagnoses Diagnosis Impaired fasting glucose- Primary Pure hypercholesterolemia Myxedema heart disease Unspecified hypothyroidism documented in this encounter Care Teams Burrer Operator Relationship Specialty Start Date End Date Durate Erickson DO PCP - General Internal Medicine 01/18/14 06/05/18 Scarlet Reynolds PA-C [address] [place] [address] [email or web address] PCP - General Unknown Provider Specialty 06/06/18 11/30/19 Duarte Erickson DO PCP - General Internal Medicine 12/01/19 12/09/20 Duarte Erickson DO PCP - General Internal Medicine 12/10/20 03/05/25 Duarte Erickson DO 179 [place] [address] PCP - General Internal Medicine 03/06/25 Shahid Watkins MD 55 [place] [address] [email or web address] [email or web address] 06/04/15 Duarte Erickson DO [address] [place] [address] [email or web address] Insurance Assigned Provider 08/07/23 documented as of this encounter Additional Source Comments The information contained in this document represents components of the legal health record. It is not the complete legal health record.[facility]
--- OUTSIDE RECORDS SUMMARY | 2025-03-23 12:36 | XMS_ITS | Encounter Summary ---
Author Organization [facility] Address [address] [place] [address] Phone Care Team Providers Care Communications Engineer Name Role Phone Shahid Watkins MD Unavailable Bigda, Duarte A DO Unavailable Bigda, Duarte A DO Primary Care Provider [phone] Bigda, Durate A DO Primary Care Provider [phone] Encounter Details Date Type Department Care Team (Late st Contact Info) Description 12/16/2020 Procedure Pass [address] [place] [address] Social History Tobacco Use Types Packs/Day Years [...] Description 08/21/2025 12:00 PM EDT Office Visit [facility] 3[facility], [address] [place] [address] Bari Silverman DO 22 [facility] [address] [place] [address] documented as of this encounter Visit Diagnoses Not on filedocumented in this encounter Care Teams Communications Engineer Relationship Specialty Start Date End Date Duarte Erickson DO [address] [place] [address] [email or web address] PCP - General Internal Medicine 12/10/20 03/05/25 Duarte Erickson DO [address] [place] [address] PCP - General Internal Medicine 03/06/25 Shahid Watkins MD [address] [place] [address] [email or web address] Gastroenterology 06/04/15 Duarte Erickson DO [address] [place] [address] Insurance Assigned Provider 08/07/23 documented as of this encounter Additional Source Comments The information contained in this document represents components of the legal health record. It is not the complete legal health record.[facility]
--- OUTSIDE RECORDS SUMMARY | 2025-03-23 12:36 | XMS_ITS | Encounter Summary ---
Author Organization [facility] Address [address] [place] [address] [address] [place] [address] Phone Care Team Providers Care Associate Brand Manager Name Role Phone Shahid Watkins MD Unavailable Bigda, Duarte A DO Unavailable Bigda, Duarte A DO Primary Care Provider [phone] Bigda, Duarte A DO Primary Care Provider [phone] Bigda, Duarte A DO Primary Care Provider [phone] Encounter Details Date Type Department Care Team (Late st Contact Info) Description 12/01/2019 Procedure Pass [facility], [address] [address] Social History Tobacco Use Types Packs/Day Years [...] Description 08/21/2025 12:00 PM EDT Office Visit [facility] [address] [place] [address] 3rd Floor, [address] [place] [address] Bari Silverman, DO 22 [facility] 301 [place] [address] documented as of this encounter Visit Diagnoses Not on filedocumented in this encounter Care Teams Associate Brand Manager Relationship Specialty Start Date End Date Duarte Erickson DO 179 [place] [address] PCP - General Internal Medicine 12/01/19 12/09/20 Duarte Erickson DO 179 [place] [address] PCP - General Internal Medicine 12/10/20 03/05/25 Duarte Erickson DO 179 [place] [address] PCP - General Internal Medicine 03/06/25 Shahid Watkins MD [address] [place] [address] [email or web address] Gastroenterology 06/04/15 Duarte Erickson DO 179 [place] [address] Insurance Assigned Provider 08/07/23 documented as of this encounter Additional Source Comments The information contained in this document represents components of the legal health record. It is not the complete legal health record.[facility]
--- OUTSIDE RECORDS SUMMARY | 2025-03-23 12:36 | XMS_ITS | Encounter Summary ---
Author Organization [facility] Address [address] [place] [address] [place] [address] Phone Care Team Providers Care Employee Counselor Name Role Phone Shahid Watkins MD Unavailable Bigda, Duarte A DO Unavailable Bigda, Duarte A DO Primary Care Provider [phone] Bigda, Duarte A DO Primary Care Provider [phone] Encounter Details Date Type Department Care Team (Latest Contact Info) Description 01/30/2025 Transcribe Orders Virtual Department [address] [place] [address] Mayar Conrad PA [address] [place] [address] [address] [place], [place] [id number] Other chest pain (Primary Dx) Social History [...] Description 08/21/2025 12:00 PM EDT Office Visit [facility] [address] [place] [address] 3rd Floor, [address] [place] [address] Bari Silverman DO [address] [place] [address] [place] [address] [email or web address] documented as of this encounter Results * XR CHEST PA AND LATERAL 2 VIEWS (02/02/2025 10:35 AM EDT) Anatomical Region Laterality Modality Chest Computed Radiogr aphy 02/02/2025 10:5 0 AM EDT Impressions 02/02/2025 10:51 AM EDT No acute cardiopulmonary abnormality. Narrative 02/02/2025 10:51 AM EDT XR CHEST PA AND LATERAL 2 VIEWS Referring clinician's provided indication for this examination in Epic: Other Indication (Please use free text); chest pain COMPARISON: XR RIBS 3 OR MORE VIEWS WITH PA CHEST (RIGHT) FINDINGS: Devices/Tubes/Lines: None. Lungs: Normal. The lungs are clear. No focal consolidation or pulmonary edema. Pleura: Normal. No pleural effusion or pneumothorax. Heart/Mediastinum: Normal heart and mediastinum. Bones/Soft Tissues: Normal. No significant skeletal abnormality. Procedure Note Olena Garcia MD - 02/02/2025 XR CHEST PA AND LATERAL 2 VIEWS Referring clinician's provided indication for this examination in [facility]:Other Indication (Please use free text); chest pain COMPARISON: XR RIBS 3 OR MORE VIEWS WITH PA CHEST (RIGHT) 2021- FINDINGS: Devices/Tubes/Lines: None. Lungs: Normal. The lungs are clear. No focal consolidation or pulmonaryedema. Pleura: Normal. No pleural effusion or pneumothorax. Heart/Mediastinum: Normal heart and mediastinum. Bones/Soft Tissues: Normal. No significant skeletal abnormality. IMPRESSION: No acute cardiopulmonary abnormality. Mayra Conrad PA IMG XR CHEST Final Resul t documented in this encounter Visit Diagnoses Diagnosis Other chest pain- Primary Other chest pain documented in this encounter Additional Health Concerns Assessment Noted Time PHQ-9 Depression Total Score: 4 10/14/19 23 11:30 AM EDT documented as of this encounter Care Teams Employee Counselor Relationship Specialty Start Date End Date Duarte Erickson DO 179 [place] [address] PCP - General Internal Medicine 12/10/20 03/05/25 Duarte Erickson DO [address] [place] [address] PCP - General Internal Medicine 03/06/25 Shahid Watkins MD [address] [place] [address] [email or web address] Gastroenterology 06/04/15 Duarte Erickson DO [address] [place] [address] [email or web address] Insurance Assigned Provider 08/07/23 documented as of this encounter Additional Source Comments The information contained in this document represents components of the legal health record. It is not the complete legal health record.[facility]
--- OUTSIDE RECORDS SUMMARY | 2025-03-23 12:36 | XMS_ITS | Encounter Summary ---
Author Organization [facility] Address [address] [place] [address] Phone Care Team Providers Care Summer Analyst Name Role Phone Shahid Watkins MD Unavailable Bigda, Duarte A DO Unavailable Bigda, Duarte A DO Primary Care Provider [phone] Bigda, Duarte A DO Primary Care Provider [phone] Encounter Details Date Type Department Care Team (Late st Contact Info) Description 04/12/2024 Procedure Pass [facility] [place] [address] Social History Tobacco Use Types Packs/Day Years [...] Description 08/21/2025 12:00 PM EDT Office Visit [facility] 22 [facility] 3rd Floor, [address] [place] [address] Bari Silverman DO [address] [address] documented as of this encounter Visit Diagnoses Not on filedocumented in this encounter Additional Health Concerns Assessment Noted Time PHQ-9 Depression Total Score: 4 10/14/19 23 11:30 AM EDT documented as of this encounter Care Teams Summer Analyst Relationship Specialty Start Date End Date Duarte Erickson DO 179 [place] [address] PCP - General Internal Medicine 12/10/20 03/05/25 Duaret Erickson DO [address] [place] [address] PCP - General Internal Medicine 03/06/25 Shahid Watkins MD 55 [place] [address] [email or web address] Gastroenterology 06/04/15 Duarte Erickson DO 179 [place] [address] [email or web address] Insurance Assigned Provider 08/07/23 documented as of this encounter Additional Source Comments The information contained in this document represents components of the legal health record. It is not the complete legal health record.[facility]
--- OUTSIDE RECORDS SUMMARY | 2025-03-23 12:36 | XMS_ITS | Encounter Summary ---
Author Organization [facility] Address [address] [place] [address] Phone Care Team Providers Care Back Roll Lathe Operator Name Role Phone Shahid Watkins MD Unavailable Bigda, Duarte A DO Unavailable Bigda, Duarte A DO Primary Care Provider [phone] Bigda, Duarte A DO Primary Care Provider [phone] Bigda, Duarte A DO Primary Care Provider [phone] Encounter Details Date Type Department Care Team (Latest Contact Info) Description 07/25/2020 Transcribe Orders Virtual Department [address] [place] [address] Alfonso Martinez MD [address] [place] [address] [email or web address] Baer's esophagus without dysplasia (Primary Dx) Social [...] Description 08/21/2025 12:00 PM EDT Office Visit [facility] 22 [facility] 3rd Floor, [address] [place] [address] Bari Silverman DO 22 [facility] [address] [place] [address] [email or web address] documented as of this encounter Results * FL UGI SERIES DOUBLE CONTRAST (08/13/2020 12:30 PM EDT) Anatomical Region Laterality Modality Abdomen Computed Radiogr aphy 08/13/2020 1:21 PM EDT Impressions 08/13/2020 1:27 PM EDT Postsurgical changes at gastroesophageal junction with mild spontaneous gastroesophageal reflux but no gross esophageal or gastric duodenal mucosal pathology detected. FLUOROSCOPY TIME: 3 min. 40 sec; 46 IMAGES/FRAMES POS - [id number] Narrative 08/13/2020 1:27 PM EDT COMPARISON: None [...] min. 40 sec; 46 IMAGES/FRAMES POS - [id number] Alfonso Martinez MD IMG FL MISC Final Resu lt documented in this encounter Visit Diagnoses Diagnosis Baer's esophagus without dysplasia- Primary Baer's esophagus without dysplasia documented in this encounter Care Teams Back Roll Lathe Operator Relationship Specialty Start Date End Date Duarte Erickson DO [address] [place] [address] PCP - General Internal Medicine 12/01/19 12/09/20 Duarte Erickson DO [address] [place] [address] PCP - General Internal Medicine 12/10/20 03/05/25 Duarte Erickson DO [address] [place] [address] PCP - General Internal Medicine 03/06/25 Shahid Watkins MD [address] [place] [address] [email or web address] Gastroenterology 06/04/15 Duarte Erickson DO [address] [place] [address] [email or web address] Insurance Assigned Provider 08/07/23 documented as of this encounter Additional Source Comments The information contained in this document represents components of the legal health record. It is not the complete legal health record.[facility]
--- OUTSIDE RECORDS SUMMARY | 2025-03-23 12:36 | XMS_ITS | Encounter Summary ---
Author Organization [facility] Address [address] [place] [address] [place] [address] Phone Care Team Providers Care Rotary Kiln Operator Name Role Phone Shahid Watkins MD Unavailable Bigda, Duarte A DO Unavailable Bigda, Duarte A DO Primary Care Provider [phone] Bigda, Duarte A DO Primary Care Provider [phone] Bigda, Duarte A DO Primary Care Provider [phone] Encounter Details Date Type Department Care Team (Late st Contact Info) Description 05/08/2020 Procedure Pass [facility] [address] [place] [address] Social History Tobacco Use Types Packs/Day Years [...] Description 08/21/2025 12:00 PM EDT Office Visit [facility] [address] [place] [address] 3rd Floor, [address] [place] [address] Bari Silverman DO 22 [facility] 301 [place] [address] documented as of this encounter Visit Diagnoses Not on filedocumented in this encounter Care Teams Rotary Kiln Operator Relationship Specialty Start Date End Date Duarte Erickson DO 179 [place] [address] PCP - General Internal Medicine 12/01/19 12/09/20 Duarte Erickson DO [address] [place] [address] PCP - General Internal Medicine 12/10/20 03/05/25 Duarte Erickson DO [address] [place] [address] PCP - General Internal Medicine 03/06/25 Shahid Watkins MD [address] [place] [address] [email or web address] Gastroenterology 06/04/15 Duarte Erickson DO [address] [place] [address] Insurance Assigned Provider 08/07/23 documented as of this encounter Additional Source Comments The information contained in this document represents components of the legal health record. It is not the complete legal health record.[facility]
--- OUTSIDE RECORDS SUMMARY | 2025-03-23 12:36 | XMS_ITS | Encounter Summary ---
Author Organization [facility] Address [address] [place] [address] [place] [address] Phone Care Team Providers Care Desulfurizer Machine Name Role Phone Shahid Watkins MD Unavailable Bigda, Duarte A DO Unavailable Bigda, Duarte A DO Primary Care Provider [phone] Bigda, Duarte A DO Primary Care Provider [phone] Bigda, Duarte A DO Primary Care Provider [phone] Encounter Details Date Type Department Care Team (Late st Contact Info) Description 09/06/2020 Procedure Pass [facility], [address] [address] Social History Tobacco Use Types Packs/Day Years [...] Description 08/21/2025 12:00 PM EDT Office Visit [facility] [address] [place] [address] 3rd Floor, [address] [place] [address] ArcBari narvaez DO 22 [facility] 301 [place] [address] documented as of this encounter Visit Diagnoses Not on filedocumented in this encounter Care Teams Desulfurizer Machine Relationship Specialty Start Date End Date Duarte Erickson DO [address] [place] [address] PCP - General Internal Medicine 12/01/19 12/09/20 Duarte Erickson DO [address] [place] [address] PCP - General Internal Medicine 12/10/20 03/05/25 Duarte Erickson DO [address] [place] [address] PCP - General Internal Medicine 03/06/25 Shahid Watkins MD [address] [place] [address] [email or web address] Gastroenterology 06/04/15 Duarte Erickson DO [address] [place] [address] Insurance Assigned Provider 08/07/23 documented as of this encounter Additional Source Comments The information contained in this document represents components of the legal health record. It is not the complete legal health record.[facility]
--- OUTSIDE RECORDS SUMMARY | 2025-03-23 12:36 | XMS_ITS | Encounter Summary ---
Author Organization [facility] Address [address] [place] [address] Phone Care Team Providers Care Fashion Consultant Selling Name Role Phone Shahid Watkins MD Unavailable Bigda, Duarte A DO Unavailable Bigda, Duarte A DO Primary Care Provider [phone] Bigda, Duarte A DO Primary Care Provider [phone] Bigda, Duarte A DO Primary Care Provider [phone] Encounter Details Date Type Department Care Team (Late st Contact Info) Description 06/07/2020 Ancillary Orders Virtual Department [address] [place] [address] Mayra Conrad PA 6 [facility] [place] [address] [place] [address] Chest pain, unspecified type Social History Tobacco [...] Description 08/21/2025 12:00 PM EDT Office Visit [facility] 22 [facility] 3rd Floor, [address] [place] [address] Bari Silverman DO 22 [facility] [address] [place] [address] [email or web address] documented as of this encounter Results * NC Stress Result for Nuclear Stress Test (06/07/2020 11:06 AM EST) Max BP Systolic 154 mmHg [facility] Max BP Diastolic 92 mmHg [facility] Max HR 146 BPM [facility] Resting HR 87 BPM [facility] Resting BP Systolic 142 mmHg [facility] Resting BP Diastolic 92 mmHg [facility] Peak METS 1.0 METS [facility] Peak HR 126 BPM [facility] Anatomical Region Laterality Modality Heart Other 06/07/2020 [...] and will be reported separately. Tsering Armenta,BETSY, STEELWORKER-BC with Dr. Aaron. us Mayra HERNANDEZ CV NM CARDIAC Final Resul t documented in this encounter Visit Diagnoses Diagnosis Chest pain, unspecified type Chest pain, unspecified type documented in this encounter Care Teams Fashion Consultant Selling Relationship Specialty Start Date End Date Duarte Erickson DO [address] [place] [address] PCP - General Internal Medicine 12/01/19 12/09/20 Duarte Erickson DO [address] [place] [address] PCP - General Internal Medicine 12/10/20 03/05/25 Duarte Erickson DO [address] [place] [address] PCP - General Internal Medicine 03/06/25 Shahid Watkins MD [address] [place] [address] [email or web address] Gastroenterology 06/04/15 Duarte Erickson DO [address] [place] [address] Insurance Assigned Provider 08/07/23 documented as of this encounter Additional Source Comments The information contained in this document represents components of the legal health record. It is not the complete legal health record.[facility]
--- OUTSIDE RECORDS SUMMARY | 2025-03-23 12:36 | XMS_ITS | Encounter Summary ---
Author Organization [facility] Address [address] [place] [address] [place] [phone] Phone Care Team Providers Care Communication Engineer Name Role Phone Shahid Watkins MD Unavailable Bigda, Duarte A DO Unavailable Bigda, Duarte A DO Primary Care Provider [phone] Bigda, Duarte A DO Primary Care Provider [phone] Reason for Referral * MRI/CAT Scan - Closed Specialty Diagnoses / Procedures Referred By Contac t Referred To Contact Radiology Diagnoses Complex tear of medial meniscus, current injury, right knee, initial encounter Procedures MRI Knee (Right) Mayra Conrad PA [address] [facility] [place] [address] [place] [address] Phone: tel: fax: Referral ID Status Reason Start Date Expiration Date Visits Re quested Visits Authorized [id number] Closed 08/21/2022 1 1 Encounter Details Date Type Department Care Team (Latest Contact Info) Description 08/21/2022 Transcribe Orders [facility] Department [address] [place] [address] Mayar Conrad PA [address] [facility] [place] [address] [place] [address] Complex tear of medial meniscus, current injury, [...] Description 08/21/2025 12:00 PM EDT Office Visit [facility] [address] [facility] 3rd Floor, [address] [place], [place] [id number] Bari Silverman DO [address] [facility] [address] [place] [address] documented as of this encounter Results * [...] encounter documented in this encounter Care Teams Communication Engineer Relationship Specialty Start Date End Date Duarte Erickson DO [address] [place] [address] [email or web address] PCP - General Internal Medicine 12/10/20 03/05/25 Duarte Erickson DO [address] [place] [address] [email or web address] PCP - General Internal Medicine 03/06/25 Shahid Watkins MD [address] [place] [address] [email or web address] 06/04/15 Daurte Erickson DO [address] [place] [address] [email or web address] Insurance Assigned Provider 08/07/23 documented as of this encounter Additional Source Comments The information contained in this document represents components of the legal health record. It is not the complete legal health record.[facility]
--- OUTSIDE RECORDS SUMMARY | 2025-03-23 12:37 | XMS_ITS | Clinical Summary ---
Author Organization [facility] Address [address] [place] [phone] Phone Care Team Providers Care Race Starter Name Role Phone Shahid Watkins MD Unavailable Duarte Erickson DO Unavailable Duarte Erickson DO Primary Care Provider [phone] Allergies No known active allergies Medications levothyroxine [...] a day. 1 Tube 2 1 Active Additional Information Patient not taking.Reported on 03/20/2025 omeprazole (PRILOSEC) 20 MG capsule TAKE 1 CAPSULE BY MOUTH EVERY DAY 30 MINUTES BEFORE BREAKFAST 2 Active tamsulosin (FLOMAX) 0.4 mg Cap Take by mouth daily. 2 Active naproxen (NAPROSYN) 500 MG tablet Take 1 tablet (500 mg total) by mouth 2 (two) times a day for 3 days. Then twice daily as needed for pain, inflammation 20 tablet 2 Active Additional Information Patient not taking.Reported on 03/20/2025 aspirin 81 mg CapIndications: myocardial infarction prevention [...] Problem Noted Date Diagnosed Date Atherosclerosis of [place] co ronary artery of [place] heart without angina pectoris 07/04/2024 Assessment & Plan (03/20/2025 11:45 AM EST): On clinical assessment I do not feel that he has repeat or recurrent anginal symptoms. I will give him close follow-up in August I asked him to start exercising so we can gauge if he truly has recurrent angina. Dysphonia 02/21/2016 Chronic laryngitis 02/21/2016 Edema of larynx 02/21/2016 Hypothyroidism 03/15/2014 Overview (06/23/2014): Hypothyroidism Laryngopharyngeal reflux 11/01/2013 Overview (06/23/2014): Laryngopharyngeal reflux Difficulty speaking 12/21/2012 Overview (06/23/2014): Dysphonia GERD (gastroesophageal reflux disease) Assessment & Plan (03/20/2025 11:46 AM EST): Present but stable Hyperlipidemia Assessment & Plan (03/20/2025 11:46 AM EST): LDL should be less than 70 and A1c should be less than 7. Encounters Date Type Department Care Team Description 03/20/2025 11:15 AM EST Office Visit [facility] [place] [address] [address], [address] [place] [address] Bari Silverman, Atherosclerosis of [place] coronary artery of [place] heart without angina pectoris (Primary Dx); Pure hypercholesterolemia; Gastroesophageal reflux disease with esophagitis without hemorrhage 03/06/2025 10:00 AM EST - 03/06/2025 11:59 PM EST Hospital Encounter Non-Invasive Cardiology [address] [place] [address] Lamar Melvin CNP Discharge Disposition: Home or Self Care 03/06/2025 9:45 AM EST - 03/06/2025 9:59 AM EST Hospital Encounter Non-Invasive Cardiology [address] [place] [address] Lamar Melvin CNP Discharge Disposition: Home or Self Care 03/06/2025 9:30 AM EST - 03/06/2025 9:44 AM EST Hospital Encounter [address] [address] Lamar Melvin CNP Discharge Disposition: Home or Self Care 03/06/2025 8:13 AM EST - 03/06/2025 9:29 AM EST Hospital Encounter [address] [address] Lamar Melvin CNP Discharge Disposition: Home or Self Care 03/06/2025 Ancillary Orders [facility] [address], [address] [place] [address] Lamar Melvin CNP Chest pain, unspecified type (Primary Dx) 02/13/2025 Telephone [facility] [address], [address] [place] [address] Lamar Melvin CNP 02/02/2025 10:21 AM EDT - 02/02/2025 11:59 PM EDT Hospital Encounter [facility] [address] [place] [address] Mayra Conrad PA Discharge Disposition: Home or Self Care 01/31/2025 Transcribe Orders Virtual Department [address] [place] [address] Mayra Conrad PA Atypical chest pain (Primary Dx) 01/30/2025 Transcribe Orders Virtual Department [address] [place] [address] Mayra Conrad PA Other chest pain (Primary [...] Pulse 84 03/20/2025 11:15 AM EST Temperature 37 C (98.6 F) 10/23/2023 3:33 PM EDT Respiratory Rate 16 10/23/2023 3:33 PM EDT Oxygen Saturation 97% 03/20/2025 11:15 AM EST Inhaled Oxygen Concentration - - Weight 77.6 kg (171 lb) 03/20/2025 11:15 AM EST Height 167.6 cm (5' 5.98 ) 03/20/2025 11:[address] Body Mass Index 27.61 03/20/2025 11:15 AM EST Plan of Treatment Upcoming Encounters Date Type Department Care Team (Late st Contact Info) Description 08/21/2025 12:00 PM EDT Office Visit [facility] [address] [place] [address] 3rd Floor, [address] [place] [address] Bari Silverman DO [address] [facility] [address] [place] [id number] [email or web address] Health Maintenance Due Date Last Done Comments Adult Td,Tdap Booster 1961 SMOKING Hx and SMOKELESS TOBACCO SCREENING 1974 HIV ONE-TIME SCREENING (18-6 5 YEARS) 1979 COLOGUARD 2006 FIT TEST 2006 FOBT 2006 SIGMOIDOSCOPY [...] 6 season) 2025 03/20/2021, 08/05/2020 BLOOD PRESSURE 09/17/2025 03/20/2025 SCREENING FOR DIABETES 04/14/2026 3, 08/13/2017 COLONOSCOPY 09/03/2027 02/29/2024 COLORECTAL CANCER SCREENING 09/03/2027 RSV VACCINE (1 - 1-dose 75+ series) [...] Procedure Name Priority Date/Time Associated Diagnosis Comments NC MYOCARDIAL PERFUSION EXERCISE, MULTI Routine 03/06/2025 12:30 PM EST Chest pain, unspecified type NC100 (TECH ORDER ONLY) NC STRESS TEST WITH NUCLEAR IMAGING Routine 03/06/2025 12:17 PM EST Chest pain, unspecified type ECG 12-LEAD Routine 02/13/2025 9:15 AM EDT XR CHEST PA AND LATERAL 2 VIEWS Routine 02/02/2025 10:35 AM EDT Other chest pain HM COLONOSCOPY FOR RESULT ENTRY ONLY Routine 02/29/2024 THYROID STIMULATING HORMONE (TSH) Routine 03/25/2021 11:24 AM EST Gastroesophageal reflux disease, unspecified whether esophagitis present Nausea COMPREHENSIVE METABOLIC PANEL (CMP) Routine 03/25/2021 11:24 AM EST Gastroesophageal reflux disease, unspecified whether esophagitis present Nausea from Last 3 Months or Most Recently Relevant to Health Maintenance Results * NC Myocardial Perfusion Exercise Multiple (03/06/2025 12:30 PM EST) Anatomical Region Laterality Modality Heart, Vascular Nuclear Medicine 03/06/2025 12:3 1 PM EST Impressions 03/06/2025 12:48 PM EST Left ventricular ejection fraction: 72% Perfusion images demonstrate a small to medium-sized infarct in the mid to distal anterior wall extending into the apex with surrounding mild charisse-infarct ischemia. Findings discussed with Dr. Silverman who will facilitate outpatient cardiology followup. Narrative 03/06/2025 12:48 PM EST EXAM: NC MYOCARDIAL PERFUSION EXERCISE, MULTI CLINICAL INDICATION: * Chest pain, nonspecific. TECHNIQUE: According to standard departmental protocol, the patient was injected with 10.8 mCi of TC-99M Sestamibi IV at rest and ungated SPECT myocardial images were obtained. Subsequently, a stress test was performed and 29.7 mCi of TC-99M Sestamibi was injected at peak stress. After 30 to 60 minutes, gated SPECT images were obtained and assessed for myocardial perfusion and left ventricular function. Stress EKG findings were interpreted by cardiology and are reported separately. Please refer to that report in Epic. COMPARISON: Nuclear Exercise stress perfusion imaging 06/07/2020. FINDINGS: PERFUSION: Perfusion images demonstrate a small to medium-sized infarct in the mid to distal anterior wall extending into the apex with surrounding mild charisse-infarct ischemia. VENTRICULAR SIZE AND FUNCTION: Left ventricular ejection fraction within normal limits. Left ventricular size within normal limits. LV EF: 72% TID Ratio: 1.19 IMAGE QUALITY: Adequate. Patient motion. Procedure Note Alexa Melendez MD - 03/06/2025 EXAM: NC MYOCARDIAL PERFUSION EXERCISE, MULTI CLINICAL INDICATION: * Chest pain, nonspecific. TECHNIQUE: According to standard departmental protocol, the patient wasinjected with 10.8 mCi of TC-99M Sestamibi IV at rest and ungated SPECTmyocardial images were obtained. Subsequently, a stress test was performedand 29.7 mCi of TC-99M Sestamibi was injected at peak stress. After 30 to60 minutes, gated SPECT images were obtained and assessed for myocardialperfusion and left ventricular function. Stress EKG findings were interpreted by cardiology and are reportedseparately. Please refer to that report in Epic. COMPARISON: Nuclear Exercise stress perfusion imaging 06/07/2020. FINDINGS: PERFUSION: Perfusion images demonstrate a small to medium-sized infarct inthe mid to distal anterior wall extending into the apex with surroundingmild charisse-infarct ischemia. VENTRICULAR SIZE AND FUNCTION: Left ventricular ejection fraction withinnormal limits. Left ventricular size within normal limits. LV EF: 72% TID Ratio: 1.19 IMAGE QUALITY: Adequate. Patient motion. IMPRESSION: Left ventricular ejection fraction: 72% Perfusion images demonstrate a small to medium-sized infarct in the mid todistal anterior wall extending into the apex with surrounding mildperi-infarct ischemia. Findings discussed with Dr. Silverman who will facilitate outpatientcardiology followup. Lamar Melvin SPLUNK CONSULTANT CV NM CARDIAC Final Re sult * NC Stress Result for Nuclear Stress Test (03/06/2025 12:17 PM EST) Max Predicted Heart Rate 157 bpm [facility] Max BP Systolic 154 mmHg [facility] Max BP Diastolic 86 mmHg [facility] Max HR 148 BPM [facility] Resting HR 83 BPM [facility] Resting BP Systolic 114 mmHg [facility] Resting BP Diastolic 70 mmHg [facility] Peak METS 10.1 METS [facility] Peak HR 146 BPM [facility] Anatomical Region Laterality Modality Heart Other 03/06/2025 [...] their maximum predicted heart rate. Lamar Melvin SPLUNK CONSULTANT CV NM CARDIAC Final Re sult * ECG 12-LEAD (02/13/2025 9:15 AM EDT) Ventricular Rate EKG/MIN 53 BPM [facility] Atrial Rate 53 BPM [facility] SC Interval 158 ms [facility] QRS Duration 98 ms [facility] QT Interval 408 ms [facility] QTC Interval 382 ms [facility] P Horton 64 degrees [facility] R Wave [place] 106 degrees [facility] T Wave [place] -18 degrees [facility] 02/13/2025 9:15 AM EDT 02/13/2025 1:50 PM EDT Narrative [facility] - 02/13/2025 1:50 PM EDT Sinus bradycardia Lateral infarct , age undetermined T wave abnormality, consider inferior ischemia Abnormal ECG Confirmed by Earl Deshpande ([id number]) on 02/13/2025 1:50:08 PM us Earl Deshpande MD ECG ORDERABLES Final Resul t [facility] * XR CHEST PA AND LATERAL 2 VIEWS (02/02/2025 10:35 AM EDT) Anatomical Region Laterality Modality Chest Computed Radiogr aphy 02/02/2025 10:5 0 AM EDT Impressions 02/02/2025 10:51 AM EDT No acute cardiopulmonary abnormality. Narrative 02/02/2025 10:51 AM EDT XR CHEST PA AND LATERAL 2 VIEWS Referring clinician's provided indication for this examination in [facility]: Other Indication (Please use free text); chest [...] clinician's provided indication for this examination in [facility]:Other Indication (Please use free text); chest pain COMPARISON: XR RIBS 3 OR MORE VIEWS WITH PA CHEST (RIGHT) FINDINGS: Devices/Tubes/Lines: None. Lungs: Normal. The lungs are clear. No focal consolidation or pulmonaryedema. Pleura: Normal. No pleural effusion or pneumothorax. Heart/Mediastinum: Normal heart and mediastinum. Bones/Soft Tissues: Normal. No significant skeletal abnormality. IMPRESSION: No acute cardiopulmonary abnormality. us Mayra HERNANDEZ IMG XR CHEST Final Resul t * HM COLONOSCOPY FOR RESULT ENTRY ONLY (02/29/2024) Colonoscopy External Historical Provider HEALTH MAINTENANCE Final Result * (ABNORMAL) Comprehensive metabolic panel (03/25/2021 11:24 AM EST) Pathologist [facility] SODIUM 135 133 - 146 mmol/L [facility] POTASSIUM 4.1 3.3 - 5.1 mmol/L [facility] CHLORIDE 99 96 - 108 mmol/L [facility] CO2 25 21 - 35 mmol/L [facility] BUN 13 6 - 19 mg/dL [facility] CREATININE 0.80 0.5 - 1.5 mg/dL [facility] GLUCOSE 200(H) 70 - 99 mg/dL [facility] ALBUMIN 4.4 3.9 - 4.8 g/dL [facility] TOTAL PROTEIN 7.2 6.5 - 8.0 g/dL [facility] CALCIUM 9.9 8.4 - 10.3 mg/dL [facility] ALKALINE PHOSPHATASE 71 39 - 117 U/L [facility] TOTAL BILIRUBIN 0.5 0.0 - 1.2 mg/dL [facility] AST 33 0 - 37 U/L [facility] ALT 38 0 - 40 U/L [facility] GLOBULIN 2.8 1 - 4.8 g/dL [facility] EGFR 98 >59 mL/min/1.7 3m2 [facility] Comment:Estimated glomerular filtration rate calculated using the CKD-EPI equation. ANION GAP 15 10 - 20 mmol/L [facility] Blood 03/25/2021 11:2 4 AM EST 03/25/2021 11:26 AM EST Lyla Bustos PA-C LAB BLOOD BKR ORDERABLES Final Result [facility] [address] [place] [address] * TSH (03/25/2021 11:24 AM EST) Pathologist [facility] TSH 2.29 0.27 - 4.20 uIU/mL [facility] Blood 03/25/2021 11:2 4 AM EST 03/25/2021 11:26 AM EST Lyla Bustos PA-C LAB BLOOD BKR ORDERABLES Final Result [facility] [address] [place] [address] from Last 3 Months or Most Recently Relevant to Health Maintenance Insurance [facility] Advance Directives For more information, please contact: [phone] (9AM - 5PM Dana/[facility], Wednesday-Wednesday) Documents on File Type Date Recorded Patient Eligibility Examiner Expl anation Advance Directive - Non Epic LMR 08/08/2015 12:00 AM Care Teams Race Starter Relationship Specialty Start Date End Date Duarte Erickson DO [address] [place] [address] PCP - General Internal Medicine 03/06/25 Shahid Watkins MD [address] [place] [address] [email or web address] [email or web address] 06/04/15 Duarte Erickson DO [address] [place] [address] [email or web address] Insurance Assigned Provider 08/07/23 Additional Source Comments The information contained in this document represents components of the legal health record. It is not the complete legal health record.[facility]
== END 2025-03-23 11:54 | disposition home or self-care (01) ==
LOC: HO.MANLDS 11:53
PROVIDERS: Visit Provider Physician Assistant
DX: E11.9 Type 2 diabetes mellitus without complications (principal)
CPT/HCPCS: 36415; 83036